=== PATIENT | male | born 1980 | race African-American/Black ===

== ENCOUNTER 2016-10-13 19:34 | Emergency (ER) | payer OTHER ==
[2016-10-13] MEDS ORDERED: SODIUM CHLORIDE 0.9% INJ ONE (22:41)
[2016-10-13] MEDS ORDERED: NS 1,000 ML IV ONE (22:41)
[2016-10-13] MEDS ORDERED: PROTONIX IV ONE (22:41)
[2016-10-13] MEDS ORDERED: ZOFRAN IV ONE (22:41)
[2016-10-13] MEDS ORDERED: MORPHINE IV ONE (22:41)
--- NOTE | 2016-10-13 22:46 | PROVIDER DOCUMENTATION ---
HPI-Abdominal Pain/GI Problem - General Chief Complaint: Abdominal Pain Stated Complaint: STOMACH/CHEST PAIN Time Seen by Provider: 10/13/16 22:17 Source: patient, family Allergies/Adverse Reactions: Patient Allergies Allergy/AdvReac Type Severity Reaction Status Date / Time orange flavor Allergy Severe SWELLING Verified 10/13/16 20:38 Sulfa (Sulfonamide Allergy Intermediate HIVES Verified 10/13/16 20:38 Antibiotics) [Sulfa(Sulfonamide Antibiotics)] orange juice [[place] Juice] AdvReac Severe SWELLING Verified 10/13/16 20:38 Home Medications: Home Medication List Medication Instructions Recorded Confirmed Last Taken Type Fluticasone 50 Mcg Nasal [place] 1 spray SHANT DAILY #0 bottle 09/27/14 10/13/16 22:00 Rx [Flonase] Gabapentin [Neurontin] 100 mg PO DAILY 01/20/16 10/13/16 06/10/16 22:00 History Metformin [Glucophage] 1,000 mg PO BID CC #60 tablet 05/23/16 10/13/16 06/10/16 08:00 Rx Insulin Glargine [Lantus] 50 unit SUBQ QPM 06/11/16 10/13/16 06/10/16 22:00 History Docusate Sodium [Dulcolax Stool 100 mg PO TID PRN PRN #10 capsule 10/14/16 Unknown Rx Softener] Simethicone Chew [Mylicon] 80 mg PO PRN PRN #10 tablet 10/14/16 Unknown Rx - History of Present Illness-ABD Nature of Presenting Problems: Patient is a 36yo AA male that presents with chest and abdominal pain x12hrs. Pain is lower mid chest and upper abdomen, 9.5/10, intermittent sharp, aching pain. Moving makes pain worse, and tried peptobismol and zofran at home, but to no relief. He ate chicken yesterday that he thought might have been more pink than he usually eats, but he ate it anyway. His also ate the chicken and felt "funny", but having symptoms to the extent of the patient. Patient reports nausea, diarrhea x4 today, dry mouth, and chronic cough. Abdominal Pain Onset Location: reports: generalized abdomen Quality of Pain: reports: aching, cramping Severity in ED: reports: moderate Onset/Duration: reports: this morning Timing: reports: still present Modifying Factors: improves with: palpation Last BM: this morning Dark Stools Present?: reports: none noticed Rectal Bleeding: reports: none Bruising or Bleeding Gums?: No Similar Symptoms Previously?: No Recently seen or treated by another doctor?: No Review of Systems - Adult - REVIEW OF SYSTEMS - ADULT Constitutional: reports: fatique. denies: chills, fever Eyes: reports: no symptoms reported. denies: discharge, dry eyes Ears, Nose, Mouth & Throat: reports: no symptoms reported. denies: ear discharge, ear pain Cardiovascular: reports: no symptoms reported. denies: chest pain, edema Respiratory: reports: chronic cough. denies: cough, dyspnea on exertion Gastrointestinal: reports: abdominal pain, nausea. denies: difficulty swallowing, frequent heartburn Genitourinary: reports: no symptoms reported. denies: dysuria, discharge Musculoskeletal: reports: no symptoms reported. denies: bone pain, back pain Integumentary: reports: no symptoms reported. denies: hives, hair loss Neurological: reports: no symptoms reported. denies: ataxia, dizziness/vertigo Psychiatric: reports: no symptoms reported. denies: anxiety, anti-depressant use Endocrine: reports: no symptoms reported Hematologic/Lymphatic: reports: no symptoms reported Allergic/Immunologic: reports: no symptoms reported All Other Systems: Reviewed and Negative Past History - Adult - PAST MEDICAL HISTORY-ADULT Review of Records: reports: Old Records Reviewed, Nursing Assessment Review, Medications Reviewed, Social history reviewed & non-contributory. Major Childhood Illnesses: reports: denies history Cardiovascular: reports: CHF Respiratory: reports: asthma, pneumonia Gastrointestinal: reports: denies history Obstetrical/Gynecological: reports: denies history Genitourinary: reports: denies history Musculoskeletal: reports: denies history Neurological: reports: denies history Endocrine/Immune: reports: Diabetes Other Conditions: reports: denies history - PRIOR SURGERIES/PROCEDURES Surgical/Procedure History: reports: other (sinus) - IMMUNIZATION STATUS Childhood Immunizations: See Nurse Assessment Flu Vaccine: See Nurse Assessment - FAMILY HISTORY Family History: reviewed, not pertinent Physical Exam-General - PHYSICAL EXAM-ADULT Initial Vital Signs Reviewed: Yes - CONSTITUTIONAL General Appearance: appears well, alert, no apparent distress - EYES Eyes: PERRL/EOMI, pink conjunctivae - HEAD, EARS, NOSE, MOUTH & THROAT HENMT: normocephalic/atraumatic, moist mucous membranes, normal ENT inspection - NECK Neck: non-tender, full range of motion, supple, normal inspection - RESPIRATORY Respiratory: chest non-tender, lungs clear, normal breath sounds, no pleuratic chest pain, no respiratory distress, no accessory muscle use - CARDIOVASCULAR Cardiovascular: normal peripheral pulses, regular rate, rhythm - GASTROINTESTINAL (ABDOMEN) Abdominal Exam: normal bowel sounds, soft, no organomegaly, no pulsatile mass, tenderness (generalized; out of proportion to exam). negative: abdominal bruit , abnormal bowel sounds, distended, guarding, rigid, rebound, McBurney's point tenderness, Mejía's sign - MUSCULOSKELETAL Back Exam: normal inspection Extremity: normal range of motion, non-tender, normal gait, normal inspection - SKIN Integumentary: normal color, normal turgor, warm/dry - NEUROLOGIC Neurologic: grossly normal, no motor/sensory deficits - PSYCHIATRIC Psych/Mental Status: normal mood/affect, normal thought content, normal thought process, oriented x 3 Progress - PLAN OF CARE/RESULTS Progress/Plan/Lab Results: Laboratory Tests 10/13/16 10/13/16 10/13/16 20:41 22:30 23:00 WBC 8.19 RBC 6.41 H Hgb 15.2 Hct 45.6 MCV 71.1 L MCH 23.7 L MCHC 33.3 RDW Std Deviation 14.3 Plt Count 193 MPV 11.0 H Immature Gran % (Auto) 0.1 Neut % (Auto) 84.3 H Lymph % (Auto) 8.5 L Leslie % (Auto) 6.6 Eos % (Auto) 0.4 Baso % (Auto) 0.1 Immature Gran # (Auto) 0.01 Neut # (Auto) 6.90 H Lymph # (Auto) 0.70 L Leslie # (Auto) 0.54 Eos # (Auto) 0.03 Baso # (Auto) 0.01 Sodium 134 L Potassium 4.1 Chloride 96 L Carbon Dioxide 22 L Anion Gap 16 BUN 19 Creatinine 1.0 Estimated GFR/1.73 m2 > 60 BUN/Creatinine Ratio 19 Glucose 271 H POC Glucose 237 H Calculated Osmolality 280 Calcium 9.4 Total Bilirubin 0.40 AST 18 ALT 24 Alkaline Phosphatase 87 Total Protein 7.5 Albumin 4.2 Globulin 3.0 Albumin/Globulin Ratio 1.0 Amylase 47 Lipase 18 Urine Source Urine Color Urine Clarity Urine pH Ur Specific [place] Urine Protein Urine Ketones Urine Blood Urine Nitrite Urine Bilirubin Urine Urobilinogen Urine Microscopic RBC Urine WBC Urine Microscopic WBC Ur Epithelial Cells Urine Bacteria Urine Glucose 10/13/16 23:35 WBC RBC Hgb Hct MCV MCH MCHC RDW Std Deviation Plt Count MPV Immature Gran % (Auto) Neut % (Auto) Lymph % (Auto) Leslie % (Auto) Eos % (Auto) Baso % (Auto) Immature Gran # (Auto) Neut # (Auto) Lymph # (Auto) Leslie # (Auto) Eos # (Auto) Baso # (Auto) Sodium Potassium Chloride Carbon Dioxide Anion Gap BUN Creatinine Estimated GFR/1.73 m2 BUN/Creatinine Ratio Glucose POC Glucose Calculated Osmolality Calcium Total Bilirubin AST ALT Alkaline Phosphatase Total Protein Albumin Globulin Albumin/Globulin Ratio Amylase Lipase Urine Source VOIDED Urine Color YELLOW Urine Clarity CLEAR Urine pH 5.0 Ur Specific [place] 1.015 Urine Protein NEGATIVE Urine Ketones 2+(Moderate) A Urine Blood NEGATIVE Urine Nitrite NEGATIVE Urine Bilirubin NEGATIVE Urine Urobilinogen NORMAL Urine Microscopic RBC <10 Urine WBC NEGATIVE Urine Microscopic WBC <10 Ur Epithelial Cells <10 Urine Bacteria 2+ Urine Glucose 3+(500 mg/dL) A Orders Category Date Time Status Saline Loc DIRECTED Care 10/13/16 22:00 Active NPO Diet 10/13/16 22:00 Active FLAT/UPRIGHT ABD/1 VIEW CHEST [RAD] Stat Exams 10/13/16 22:41 Taken AMYLASE [CHEM] Stat Lab 10/13/16 23:00 Completed CBC WITH ELECTRONIC DIFF [HEME] Stat Lab 10/13/16 22:30 Completed COMPREHENSIVE METABOLIC PANEL [CHEM] Stat Lab 10/13/16 23:00 Completed LIPASE [CHEM] Stat Lab 10/13/16 23:[address] W/POSS RFLX CULT [URINALYSIS] Stat Lab 10/13/16 23:35 Completed URINE CULTURE [RM] Routine Lab 10/14/16 00:06 Ordered 0.9% Sodium Chloride Inj [Ns] 1,000 ml Med 10/13/16 22:41 Discontinued IV 999 mls/hr Morphine Med 10/13/16 22:41 Discontinued 4 mg IV NOW ONE Ondansetron [Zofran] Med 10/13/16 22:41 Discontinued 4 mg IV NOW ONE Pantoprazole [Protonix] Med 10/13/16 22:41 Discontinued 40 mg IV NOW ONE Sodium Chloride 0.9% Med 10/13/16 22:41 Discontinued 10 ml INJ NOW ONE Vital Signs Temp Pulse Resp BP Pulse Ox 10/13/16 20:32 98.4 F 105 H 18 113/63 98 orange flavor Allergy (Severe, Verified 10/13/16 20:38) SWELLING Sulfa (Sulfonamide Antibiotics) [Sulfa(Sulfonamide Antibiotics)] Allergy ( Intermediate, Verified 10/13/16 20:38) HIVES orange juice [[place] Juice] Adverse Reaction (Severe, Verified 10/13/16 20:38) SWELLING Fluticasone 50 Mcg Nasal [place] [Flonase] 1 spray SHANT DAILY #0 bottle 09/27/14 Gabapentin [Neurontin] 100 mg PO DAILY 01/20/16 Metformin [Glucophage] 1,000 mg PO BID CC #60 tablet 05/23/16 Insulin Glargine [Lantus] 50 unit SUBQ QPM 06/11/16 Dietary Diet NPO Start ThuOct 13 2199 I&O 10/12/16 10/13/16 10/14/16 06:59 06:59 06:59 Output Total 50 Balance -50 Laboratory 10/13/16 10/13/16 10/13/16 23:35 23:00 22:30 WBC 8.19 RBC 6.41 H Hgb 15.2 Hct 45.6 MCV 71.1 L MCH 23.7 L MCHC 33.3 RDW Std Deviation 14.3 Plt Count 193 MPV 11.0 H Immature Gran % (Auto) 0.1 Neut % (Auto) 84.3 H Lymph % (Auto) 8.5 L Leslie % (Auto) 6.6 Eos % (Auto) 0.4 Baso % (Auto) 0.1 Immature Gran # (Auto) 0.01 Neut # (Auto) 6.90 H Lymph # (Auto) 0.70 L Leslie # (Auto) 0.54 Eos # (Auto) 0.03 Baso # (Auto) 0.01 Sodium 134 L Potassium 4.1 Chloride 96 L Carbon Dioxide 22 L Anion Gap 16 BUN 19 Creatinine 1.0 Estimated GFR/1.73 m2 > 60 BUN/Creatinine Ratio 19 Glucose 271 H POC Glucose Calculated Osmolality 280 Calcium 9.4 Total Bilirubin 0.40 AST 18 ALT 24 Alkaline Phosphatase 87 Total Protein 7.5 Albumin 4.2 Globulin 3.0 Albumin/Globulin Ratio 1.0 Amylase 47 Lipase 18 Urine Source VOIDED Urine Color YELLOW Urine Clarity CLEAR Urine pH 5.0 Ur Specific [place] 1.015 Urine Protein NEGATIVE Urine Ketones 2+(Moderate) A Urine Blood NEGATIVE Urine Nitrite NEGATIVE Urine Bilirubin NEGATIVE Urine Urobilinogen NORMAL Urine Microscopic RBC <10 Urine WBC NEGATIVE Urine Microscopic WBC <10 Ur Epithelial Cells <10 Urine Bacteria 2+ Urine Glucose 3+(500 mg/dL) A 10/13/16 20:41 WBC RBC Hgb Hct MCV MCH MCHC RDW Std Deviation Plt Count MPV Immature Gran % (Auto) Neut % (Auto) Lymph % (Auto) Leslie % (Auto) Eos % (Auto) Baso % (Auto) Immature Gran # (Auto) Neut # (Auto) Lymph # (Auto) Leslie # (Auto) Eos # (Auto) Baso # (Auto) Sodium Potassium Chloride Carbon Dioxide Anion Gap BUN Creatinine Estimated GFR/1.73 m2 BUN/Creatinine Ratio Glucose POC Glucose 237 H Calculated Osmolality Calcium Total Bilirubin AST ALT Alkaline Phosphatase Total Protein Albumin Globulin Albumin/Globulin Ratio Amylase Lipase Urine Source Urine Color Urine Clarity Urine pH Ur Specific [place] Urine Protein Urine Ketones Urine Blood Urine Nitrite Urine Bilirubin Urine Urobilinogen Urine Microscopic RBC Urine WBC Urine Microscopic WBC Ur Epithelial Cells Urine Bacteria Urine Glucose Will d/c home. Pt in agreement. - XRAY 1 XRAY Study: Abdomen XRAY Interpretation: constipation; gas distention (myself and Dr. wood) Departure - Departure Time of Disposition Order: 00:34 DIAGNOSIS: Gas pain Constipated Qualifiers: Constipation type: unspecified constipation type Qualified Code(s): K59.00 - Constipation, unspecified Disposition: HOME 01 Certified Medical Emergency: Emergent Condition: Good Additional Instructions: Take medication as prescribed. Eat a bland diet and drink plenty of fluid. Follow up with your primary care provider or [facility]. ED Follow Up Instructions: You have been treated by a care provider in the Emergency Department. These instructions are being provided to you so you can have an understanding of how to care for yourself upon discharge. Upon discharge from the Emergency Department, you are responsible for making arrangements for follow-up care by a physician of your choice. Take all prescribed medications as directed. Return to the Emergency Department immediately for any new or worsening symptoms. You may call the Physician Referral phone number at [phone] to obtain a list of Physicians who are taking new patients. Prescriptions: Docusate Sodium [Dulcolax Stool Softener] 100 mg PO TID PRN PRN #10 capsule PRN Reason: Constipation Simethicone Chew [Mylicon] 80 mg PO PRN PRN #10 tablet PRN Reason: gas pain Referrals: Deana Dunn CRNP [Primary Care Provider] - Narendra Elkins MD [STAFF PHYSICIAN] - Attestation - Physician/ KRISTINA Attestation Patient care was provided by Advanced Practice Provider:: Yes Advanced Practice Provider:: Keven Gomez Advanced Practice Provider documentation review:: The Mid-level provider documentation, treatment plan and medical decision making was reviewed by the physician who agrees with all treatment and medical decision making by the MLP.
[2016-10-13 22:49] LABS: BASO% 0.1 % (0.0-0.8); EOS# 0.03 X1000 (0.0-0.7); EOS% 0.4 % (0.0-10.0); HEMATOCRIT 45.6 % (42.0-52.0); HEMOGLOBIN 15.2 g/dL (14.0-18.0); IMM GRAN# 0.01 X1000 (0.0-0.04); IMM GRAN% 0.1 % (0.0-0.5); LYMPH% 8.5 % (20.5-51.1); MANUAL DIFF NEEDED? NO; MCH 23.7 PG (27-31); MCHC 33.3 g/dL (33-37); MCV 71.1 FL (81-99); MONO# 0.54 X1000 (0.11-0.59); MONO% 6.6 % (1.7-9.3); NEUT% 84.3 % (42.2-75.2); PLT 193 X1000 (130-400); RBC 6.41 XMIL (4.7-6.1)
[2016-10-13 23:25] LABS: AGAP 16; ALBUMIN 4.2 g/dL (3.5-5.0); ALKALINE PHOSPHATASE 87 U/L (32-122); AMYLASE 47 U/L (20-200); BUN 19 mg/dL (8-22); CALCIUM 9.4 mg/dL (8.8-10.2); CHLORIDE 96 mmol/L (98-107); COSMO 280; GOT 18 U/L (10-34); GPT 24 U/L (10-44); LIPASE 18 U/L (13-60); POTASSIUM 4.1 mmol/L (3.5-5.1); SODIUM 134 mmol/L (136-145); TCO2 22 mmol/L (25-35); TOTAL PROTEIN 7.5 g/dL (6.3-8.3)
[2016-10-13 23:51] LABS: URINE SOURCE VOIDED
[2016-10-13 23:59] LABS: BILIRUBIN URINE NEGATIVE (NEGATIVE); BLOOD URINE NEGATIVE (NEGATIVE); CLARITY CLEAR (CLEAR); COLOR YELLOW; LEUKOCYTES URINE NEGATIVE (NEGATIVE); NITRITE URINE NEGATIVE (NEGATIVE); PROTEIN URINE NEGATIVE (NEGATIVE); SP GRAVITY URINE 1.015; UROBILINOGEN URINE NORMAL
[2016-10-14 00:06] LABS: URINE CULTURE PL NEEDED? YES; URINE EPITHELIAL CELLS <10 /HPF (<10); URINE RBC <10 /HPF (<10); URINE WBC <10 /HPF (<10)
[2016-10-14 01:36] VITALS: BP 126/75
--- NOTE | 2016-10-14 06:13 | Diag Imaging Result Document ---
PROCEDURE NAME: FLAT/UPRIGHT ABD/1 VIEW CHEST - 10/13/2016 FLAT AND UPRIGHT WITH CHEST, THREE VIEWS: COMPARISON: The chest is compared to 06/11/2016. FINDINGS: The lungs are well expanded. The heart is not enlarged. Tiny infiltrate in the left base behind the heart. No free air beneath the diaphragm. No bowel obstruction although there is stool throughout the colon. No organomegaly. No abnormal abdominal calcifications. No foreign body. IMPRESSION: 1. Small infiltrate in the left lung base. 2. Mild constipation.
== END 2016-10-14 01:36 | disposition home or self-care (01) ==
LOC: P.ED 19:34
DX: K59.00 Constipation, unspecified (principal); R14.1 Gas pain; R07.89 Other chest pain; R10.30 Lower abdominal pain, unspecified; R10.84 Generalized abdominal pain; R11.0 Nausea; R19.7 Diarrhea, unspecified; R05 Cough; R68.2 Dry mouth, unspecified; R53.83 Other fatigue; R10.817 Generalized abdominal tenderness; E11.9 Type 2 diabetes mellitus without complications; Z79.4 Long term (current) use of insulin; Z79.899 Other long term (current) drug therapy
CPT/HCPCS: 74022; 80053; 81001; 82150; 82948; 83690; 85025; 87088; 96361; 96374; 96375; C9113; J2270; J2405; J7030; S0164

== ENCOUNTER 2016-11-25 17:48 | Inpatient (IN) ==
--- NOTE | 2016-11-25 20:14 | PROVIDER DOCUMENTATION ---
HPI-Respiratory General - General Chief Complaint: Cough Stated Complaint: COUGH/CHEST JUDY Time Seen by Provider: 11/25/16 19:42 Source: patient, family Allergies/Adverse Reactions: Patient Allergies Allergy/AdvReac Type Severity Reaction Status Date / Time orange flavor Allergy Severe SWELLING Verified 10/13/16 20:38 Sulfa (Sulfonamide Allergy Intermediate HIVES Verified 10/13/16 20:38 Antibiotics) [Sulfa(Sulfonamide Antibiotics)] orange juice [Anna Juice] AdvReac Severe SWELLING Verified 10/13/16 20:38 Home Medications: Home Medication List Medication Instructions Recorded Confirmed Last Taken Type Fluticasone 50 Mcg Nasal [place] 1 spray SHANT DAILY #0 bottle 09/27/14 10/13/16 22:00 Rx [Flonase] Gabapentin [Neurontin] 100 mg PO DAILY 01/20/16 10/13/16 06/10/16 22:00 History Metformin [Glucophage] 1,000 mg PO BID CC #60 tablet 05/23/16 10/13/16 06/10/16 08:00 Rx Insulin Glargine [Lantus] 50 unit SUBQ QPM 06/11/16 10/13/16 06/10/16 22:00 History Docusate Sodium [Dulcolax Stool 100 mg PO TID PRN PRN #10 capsule 10/14/16 Unknown Rx Softener] Simethicone Chew [Mylicon] 80 mg PO PRN PRN #10 tablet 10/14/16 Unknown Rx - History of Present Illness-Resp Nature of Presenting Problem: 36 yo diabetic male with significant hx of pneumonia and hospitalization in the past presents with 7 days of cough, congestion and body aches. States feels like when he has had pneumonia in the past. Has slight hemoptysis last two days , otherwise thick mucus. Also has nasal congestion, sore throat, and body aches and chills. Has only taken his daily medication and Mucinex for treatment. Is to have nasal polyp surgery but waiting for clearance due to lung issues. Last hospitalization for PNA was May 16 2016 x 6 days. Quality of Pain: reports: aching Severity in ED: reports: moderate Onset/Duration: reports: 1 week ago Timing: reports: still present, getting worse Exposure: reports: unknown cause Cough Quality/Degree: reports: moderate, productive cough, sputum, blood streaked sputum Episode Frequency: frequent episodes Modifying Factors: improves with: coughing, rest Associated Symptoms: reports: chest pain/soreness, cough, dizziness, facial pain , fever/chills, hurts to breathe, muscle/bodyaches, nasal congestion, nasal drainage, shortness of breath, sinus pain Similar Symptoms Previously?: Yes (hx of pneumonia, was hospitalized in May) Recently seen or treated by another doctor?: No Review of Systems - Adult - REVIEW OF SYSTEMS - ADULT Constitutional: reports: chills, fatique Eyes: reports: no symptoms reported Ears, Nose, Mouth & Throat: reports: sinus problem, hoarseness. denies: ear pain, epistaxis Cardiovascular: reports: chest pain. denies: palpitations, syncope Respiratory: reports: cough, dyspnea on exertion, excessive sputum production, hemoptysis, shortness of breath Gastrointestinal: denies: abdominal pain Musculoskeletal: reports: joint pain, muscle aches Integumentary: reports: other (pain to touch) Neurological: reports: dizziness/vertigo, headache/migraines, paresthesia (hx of peripheral neuropathy) Past History - Adult - PAST MEDICAL HISTORY-ADULT Review of Records: reports: Old Records Reviewed, Nursing Assessment Review, Medications Reviewed, Social history reviewed & non-contributory. Major Childhood Illnesses: reports: denies history Cardiovascular: reports: CHF Respiratory: reports: asthma, pneumonia Gastrointestinal: reports: denies history Obstetrical/Gynecological: reports: denies history Genitourinary: reports: denies history Musculoskeletal: reports: denies history Neurological: reports: denies history Endocrine/Immune: reports: Diabetes Other Conditions: reports: denies history - PRIOR SURGERIES/PROCEDURES Surgical/Procedure History: reports: other (sinus) - IMMUNIZATION STATUS Childhood Immunizations: See Nurse Assessment Flu Vaccine: See Nurse Assessment - FAMILY HISTORY Family History: reviewed, not pertinent Physical Exam-General - PHYSICAL EXAM-ADULT Initial Vital Signs Reviewed: Yes - CONSTITUTIONAL General Appearance: moderate distress, lethargic, slow to respond - HEAD, EARS, NOSE, MOUTH & THROAT HENMT: normocephalic/atraumatic. negative: moist mucous membranes (Dry caked tongue), angioedema, pharyngeal erythema, tonsillar exudate - NECK Neck: supple. negative: non-tender, trachial deviation - RESPIRATORY Respiratory: no accessory muscle use, crackles. negative: lungs clear, no pleuratic chest pain, wheezing - CARDIOVASCULAR Cardiovascular: regular rate, rhythm, no gallop, no JVD, no murmur, tachycardia . negative: friction rub - MUSCULOSKELETAL Extremity: tenderness (To all extremities with light palpation). negative: erythema, pedal edema, swelling - SKIN Integumentary: warm/dry, tenderness - NEUROLOGIC Neurologic: negative: motor weakness - PSYCHIATRIC Psych/Mental Status: oriented x 3, depressed affect Progress - PLAN OF CARE/RESULTS Progress/Plan/Lab Results: Vital Signs - 8 hr 11/25/16 17:57 11/25/16 21:11 11/25/16 22:12 Temperature 99.8 F H 100.3 F H 99.2 F Pulse Rate 110 H 105 H 99 H Respiratory Rate 19 13 Blood Pressure 133/93 148/92 O2 Sat by Pulse Oximetry 98 96 99 11/26/16 00:38 Temperature 98.2 F Pulse Rate 90 Respiratory Rate 18 Blood Pressure 121/79 O2 Sat by Pulse Oximetry 100 Laboratory Results - last 24 hr 11/25/16 11/25/16 11/25/16 19:50 21:00 21:00 WBC 7.90 RBC 5.58 Hgb 13.4 L Hct 40.7 L MCV 72.9 L MCH 24.0 L MCHC 32.9 L RDW Std Deviation 14.4 Plt Count 199 MPV 10.3 Immature Gran % (Auto) 0.1 Neut % (Auto) 68.2 Lymph % (Auto) 21.4 [place] % (Auto) 9.5 H Eos % (Auto) 0.5 Baso % (Auto) 0.3 Immature Gran # (Auto) 0.01 Neut # (Auto) 5.39 Lymph # (Auto) 1.69 [place] # (Auto) 0.75 H Eos # (Auto) 0.04 Baso # (Auto) 0.02 Segmented Neutrophils 67 Band Neutrophils 2 H Lymphocytes 20 L Monocytes 11 H Hypochromia 1+ Microcytosis 3+ PT INR APTT (Factor Assay) Specimen Type Sample Site pH pCO2 pO2 HCO3 Base Excess Oxyhemoglobin ABG O2 Sat (Calculated) ABG O2 Saturation ABG Carboxyhemoglobin ABG Methemoglobin Jaime Test A-a O2 Difference Total Hemoglobin Lactate Blood Gas Modality FiO2 % Sodium 137 Potassium 3.5 Chloride 98 Carbon Dioxide 21 L Anion Gap 18 BUN 9 Creatinine 0.8 Estimated GFR/1.73 m2 > 60 BUN/Creatinine Ratio 11 Glucose 149 H Calculated Osmolality 275 Calcium 8.8 Total Bilirubin 0.40 AST 16 ALT 13 Alkaline Phosphatase 79 Creatine Kinase Troponin T Total Protein 7.2 Albumin 3.8 Globulin 3.0 Albumin/Globulin Ratio 1.0 Plasma Lactate Influenza A (Rapid) NEGATIVE Influenza B (Rapid) NEGATIVE 11/25/16 11/25/16 11/25/16 21:00 21:00 21:00 WBC RBC Hgb Hct MCV MCH MCHC RDW Std Deviation Plt Count MPV Immature Gran % (Auto) Neut % (Auto) Lymph % (Auto) [place] % (Auto) Eos % (Auto) Baso % (Auto) Immature Gran # (Auto) Neut # (Auto) Lymph # (Auto) [place] # (Auto) Eos # (Auto) Baso # (Auto) Segmented Neutrophils Band Neutrophils Lymphocytes Monocytes Hypochromia Microcytosis PT 13.6 INR 1.01 APTT (Factor Assay) 29.0 Specimen Type Sample Site pH pCO2 pO2 HCO3 Base Excess Oxyhemoglobin ABG O2 Sat (Calculated) ABG O2 Saturation ABG Carboxyhemoglobin ABG Methemoglobin Jaime Test A-a O2 Difference Total Hemoglobin Lactate Blood Gas Modality FiO2 % Sodium Potassium Chloride Carbon Dioxide Anion Gap BUN Creatinine Estimated GFR/1.73 m2 BUN/Creatinine Ratio Glucose Calculated Osmolality Calcium Total Bilirubin AST ALT Alkaline Phosphatase Creatine Kinase 61 Troponin T < 0.010 Total Protein Albumin Globulin Albumin/Globulin Ratio Plasma Lactate Influenza A (Rapid) Influenza B (Rapid) 11/25/16 11/25/16 21:28 21:40 WBC RBC Hgb Hct MCV MCH MCHC RDW Std Deviation Plt Count MPV Immature Gran % (Auto) Neut % (Auto) Lymph % (Auto) [place] % (Auto) Eos % (Auto) Baso % (Auto) Immature Gran # (Auto) Neut # (Auto) Lymph # (Auto) [place] # (Auto) Eos # (Auto) Baso # (Auto) Segmented Neutrophils Band Neutrophils Lymphocytes Monocytes Hypochromia Microcytosis PT INR APTT (Factor Assay) Specimen Type ARTERIAL Sample Site R RADIAL pH 7.42 pCO2 36 pO2 70 HCO3 24.3 Base Excess -0.7 Oxyhemoglobin 93.3 L ABG O2 Sat (Calculated) 18.9 ABG O2 Saturation 97.1 ABG Carboxyhemoglobin 2.30 ABG Methemoglobin 1.6 H Jaime Test YES A-a O2 Difference 35.0 Total Hemoglobin 14.4 Lactate 0.80 Blood Gas Modality ROOM AIR FiO2 % 21.0 Sodium Potassium Chloride Carbon Dioxide Anion Gap BUN Creatinine Estimated GFR/1.73 m2 BUN/Creatinine Ratio Glucose Calculated Osmolality Calcium Total Bilirubin AST ALT Alkaline Phosphatase Creatine Kinase Troponin T Total Protein Albumin Globulin Albumin/Globulin Ratio Plasma Lactate 1.5 Influenza A (Rapid) Influenza B (Rapid) Orders Category Date Time Status Admit - [facility] Routine AdmDCTranf 11/26/16 00:54 Ordered Activity - Up Ad Kat ORDERED Care 11/26/16 00:54 Active Call Admitting on Arrival AT ADMISSION Care 11/26/16 00:54 Active Cardiac Monitoring DIRECTED Care 11/25/16 21:21 Active IV Insertion ORDERED Care 11/25/16 21:21 Completed Notify MD of + Sepsis Screen NOW Care 11/25/16 21:21 Active Resuscitation Status Routine Care 11/26/16 00:54 Ordered Saline Loc NOW Care 11/25/16 20:53 Inactive Saline Loc NOW Care 11/25/16 20:57 Active Vital Signs Order ROUTINE Care 11/26/16 00:54 Active Heart Healthy Diet Diet 11/26/16 00:55 Active CHEST-2 VIEWS [RAD] Stat Exams 11/25/16 18:03 Taken Chest [CT THORAX W/CONTRAST] [CT] Stat Exams 11/25/16 21:50 Taken ABG [RESP] Routine Lab 11/25/16 21:28 Completed BLOOD CULTURE [BLDCUL] Stat Lab 11/25/16 20:57 Ordered CBC WITH DIFF [HEME] Stat Lab 11/25/16 21:00 Completed CK PROFILE [SP CHEM] Stat Lab 11/25/16 21:00 Completed CMP [COMPREHENSIVE METABOLIC PANEL] [CHEM] Stat Lab 11/25/16 21:00 Completed Flu [INFLUENZA SCREEN PL] Stat Lab 11/25/16 19:50 Completed LACTATE, PLASMA [CHEM] Stat Lab 11/25/16 21:40 Completed [address]IME WITH INR PL [COAG] Stat Lab 11/25/16 21:[address] [COAG] Stat Lab 11/25/16 21:00 Completed TROPONIN T Stat Lab 11/25/16 21:00 Completed 0.9% Sodium Chloride Inj [Ns] 1,000 ml Med 11/26/16 00:54 Active IV 90 mls/hr 0.9% Sodium Chloride Inj [Ns] 1,000 ml Med 11/25/16 21:46 Discontinued IV 999 mls/hr Acetaminophen [Tylenol] Med 11/25/16 21:17 Discontinued 650 mg .ROUTE .STK-MED ONE Acetaminophen [Tylenol] Med 11/25/16 21:16 Discontinued 650 mg PO NOW ONE CefTRIAXONE 1 GM/NS [Rocephin 1 gm/Ns] Med 11/25/16 21:24 Discontinued 1 gm in 50 ml IV NOW Ketorolac [Toradol] Med 11/25/16 21:47 Discontinued 30 mg IV NOW ONE Vancomycin 1 gm/Ns Med 11/25/16 21:24 Discontinued 1 gm in 250 ml IV NOW Oxygen Device Stat Oth 11/25/16 21:21 Active Pulse Oximetry Stat Oth 11/25/16 20:57 Active Telemetry [OM.EQ] Routine Oth 11/26/16 00:54 Active Transfer/Admit Order [TRANSFER] Routine Transfer 11/26/16 00:55 Ordered Discussed CXR findings with Dr. Olivares, noted changes from previous CXR of consolidation in LLL. Upon recheck of pt temp, has fever 100.3, with elevated HR. Meets SIRS criteria , probable source from lungs as consolidation seen in LLL, changed from previous CXR six months prior. Discussed with midlevel on shift tonight regarding case. Given Tylenol, start on antibiotics IV. Result Diagrams: 11/25/16 21:00 11/25/16 21:00 - REASSESSMENT Reassessment #1 Time Reassessed: 21:17 Status: worsening (Temperature increased to 100.3. O2 sat 96% noted.) Reassessment #2 Time Reassessed: 21:52 Status: unchanged (Start IV fluids and IV abx and Toradol for his pain. COncern for recurrent pneumonia, possible atypical pneumonia. Order CT Chest. Pt c/o continued pain after Tylenol.) Reassessment #3 Time Reassessed: 22:10 (Took over pt from Sebastian FROST due to the end of her shift. Pt is stable however has SIRS criteria vital signs and worsening chest x- ray. We are working him up for sepsis. Pending labs and ct scan of chest. Pt states he has had pna x 2 years. ) Reassessment #4 Time Reassessed: 00:02 (Discussed imaging studies and labs c pt and family at bedside. Pt states he has had similar episodes in the past and has ultimately always failed out-pt tx. He is managed by Dr. Boyer and Dr. Light. Discussed c Dr. Olivares who agreed c admission. ) - XRAY 1 XRAY Study: Chest Impression: Abnormal (LLL consolidation (ED read)) XRAY Interpretation: Consolidation in LLL. Is new finding compared to CXR in May 2016. - CT/MRI 1 CT Study: Thorax Impression: Abnormal (Abnormal diffuse nodularity with confluent consolidation in both lungs. The pattern is similar to the prior study. The upper and midlung nodularity has decreased. Lower lung consolidation has slightly increased. This may be a chronic or recurrent pneumonia. Atypical organism is possible and not excluded. Unchanged mediastinal lymphadenopathy. - radiology) - CONSULTS/PCP/HOSPITALIST Notification #1 *Consult/PCP/Hospitalist*: Dr. Crabtree (Hospitalist) Time Discussed: 00:57 Reason/Comments: Please write basic admission orders. - CHANGE OF SHIFT REPORT (ED Provider) Report Given and Care Transferred to:: Jerad Goins PA-C Time of Transfer: 22:32 Items Pending: CT/MRI Results, Other (Admission for sepsis) Departure - Departure Time of Disposition Decision: 00:04 DIAGNOSIS: Pneumonia Qualifiers: Pneumonia type: due to unspecified organism Laterality: bilateral Lung location : lower lobe of lung Qualified Code(s): J18.9 - Pneumonia, unspecified organism Disposition: HOME 01 Certified Medical Emergency: Emergent Condition: Stable Referrals and Follow-Ups: Deana Dunn CRNP [Primary Care Provider] - Attestation - Physician/ KRISTINA Attestation Patient care was provided by Advanced Practice Provider:: Yes Advanced Practice Provider:: Jerad Goins Advanced Practice Provider documentation review:: The Mid-level provider documentation, treatment plan and medical decision making was reviewed by the physician who agrees with all treatment and medical decision making by the MLP.
[2016-11-25] MEDS ORDERED: TYLENOL PO ONE (21:16)
[2016-11-25] MEDS ORDERED: TYLENOL ONE (21:17)
[2016-11-25] MEDS ORDERED: VANCOMYCIN 1 GM/NS 1 GM/250 ML IVPB IV ONE (21:24)
[2016-11-25] MEDS ORDERED: ROCEPHIN 1 GM/NS 1 GM/50 ML IVPB IV ONE (21:24)
[2016-11-25 21:42] LABS: INR 1.01 (0.86-1.15); PROTIME 13.6 Seconds (12.1-15.5)
[2016-11-25 21:46] LABS: BE -0.7 mmoll (-3.0-3.0); BLOOD TYPE ARTERIAL; DRAW SITE R RADIAL; METHB 1.6 % (0.0-1.5); O2(CT) 18.9 mL/dL (15.0-23.0); PCO2(98.6) 36 mmHg (35-45); PO2(98.6) 70 mmHg (60-100); SAMPLE BLOOD; SAO2 97.1 % (95.0-100.0); THB 14.4 g/dL (11.5-17.4); pH(98.6) 7.42 (7.35-7.45)
[2016-11-25] MEDS ORDERED: NS 1,000 ML IV ONE (21:46)
[2016-11-25] MEDS ORDERED: TORADOL IV ONE (21:47)
[2016-11-25 21:48] LABS: AGAP 18; ALBUMIN 3.8 g/dL (3.5-5.0); ALKALINE PHOSPHATASE 79 U/L (32-122); BUN 9 mg/dL (8-22); CALCIUM 8.8 mg/dL (8.8-10.2); CHLORIDE 98 mmol/L (98-107); COSMO 275; GOT 16 U/L (10-34); GPT 13 U/L (10-44); POTASSIUM 3.5 mmol/L (3.5-5.1); SODIUM 137 mmol/L (136-145); TCO2 21 mmol/L (25-35); TOTAL PROTEIN 7.2 g/dL (6.3-8.3)
[2016-11-25 21:54] LABS: ALLEN TEST YES; MODALITY ROOM AIR
[2016-11-25 22:15] LABS: BASO% 0.3 % (0.0-0.8); EOS# 0.04 X1000 (0.0-0.7); EOS% 0.5 % (0.0-10.0); HEMATOCRIT 40.7 % (42.0-52.0); HEMOGLOBIN 13.4 g/dL (14.0-18.0); IMM GRAN# 0.01 X1000 (0.0-0.04); IMM GRAN% 0.1 % (0.0-0.5); LYMPH# 1.69 X1000 (1.2-3.4); LYMPH% 21.4 % (20.5-51.1); MANUAL DIFF NEEDED? YES; MCHC 32.9 g/dL (33-37); MCV 72.9 FL (81-99); MONO# 0.75 X1000 (0.11-0.59); MONO% 9.5 % (1.7-9.3); MPV 10.3 FL (7.4-10.4); NEUT% 68.2 % (42.2-75.2); PLT 199 X1000 (130-400); RBC 5.58 XMIL (4.7-6.1)
[2016-11-25 22:29] LABS: BANDS 2 % (0-1); HYPOCHROM 1+; LYMPHS 20 % (21-51); MONO 11 % (1-9)
[2016-11-26] MEDS ORDERED: NS 1,000 ML IV ONE (00:54)
[2016-11-26] MEDS ORDERED: TYLENOL PO PRN (06:13)
--- NOTE | 2016-11-26 07:55 | Diag Imaging Result Document ---
PROCEDURE NAME: CHEST-2 VIEWS - 11/25/2016 FRONTAL AND LATERAL CHEST, TWO VIEWS: COMPARISON: Compared to 10/13/2016. FINDINGS: There are infiltrates in the left base. These are more pronounced. Questionable tiny infiltrate in the right base. The heart is not enlarged. The vessels are not distended. No pleural effusions. IMPRESSION: Left basilar pneumonia.
--- NOTE | 2016-11-26 09:05 | Diag Imaging Result Document ---
PROCEDURE NAME: CT THORAX W/CONTRAST - 11/25/2016 CT SCAN OF THORAX WITH IV CONTRAST: INDICATION: Sepsis or chronic pneumonia. COMPARISON: 05/16/2016. FINDINGS: Preliminary interpretation was given by the corporate vp advertising & online radiologist. There is mediastinal lymphadenopathy. Aortopulmonary window lymph node measures 2.7 x 15 mm. There is subcarinal lymphadenopathy. There are nodular infiltrates involving the right middle lobe and lingula, as well as left lower lobe with more dense consolidation with air bronchograms, particularly noted within the left lower lobe. There are no pleural effusions. No abscess. No evidence for aortic aneurysm or dissection. The large confluent nodules noted on the previous study within the upper lobes are no longer apparent. Overall nodularity within the upper lobes has decreased. There is no evidence for aortic aneurysm or dissection. IMPRESSION: Bilateral nodular infiltrates are less pronounced than the prior study, though the pattern is similar with more confluent consolidation left lower lobe. Findings are consistent with persistent or recurrent pneumonia or inflammatory process. Atypical microorganisms should be considered. Bronchoscopy may be beneficial.
[2016-11-26] MEDS ORDERED: MYLICON PO PRN (09:24)
[2016-11-26] MEDS ORDERED: COLACE PO PRN (09:24)
[2016-11-26] MEDS ORDERED: GLUCOPHAGE PO SCH (09:30)
[2016-11-26] MEDS: FLONASE NAS SCH (10:00)
[2016-11-26] MEDS: NEURONTIN PO SCH (10:00)
[2016-11-26] MEDS: ZITHROMAX 500 MG/NS 500 MG/250 ML IVPB IV SCH (10:01)
--- NOTE | 2016-11-26 10:07 | HISTORY AND PHYSICAL ---
PRIMARY CARE PHYSICIAN: MORENITA Cody at [facility]. CHIEF COMPLAINT: Cough, congestion, body aches, sore throat, chills for the past several days that have progressively worsened. HISTORY OF PRESENTING ILLNESS: This is a 36-year-old, male, who presents to [facility] with complaints of cough that is productive, congestion, body aches, sore throat, chills. Workup in the ER showed on arrival he had a temperature of 99.8. Laboratory data was fairly unremarkable. Chest x-ray showed a left basilar pneumonia. A chest CT was obtained that showed bilateral nodular infiltrates. The pattern is similar with more confluent consolidation of the left lower lobe, consistent with persistent or recurrent pneumonia or inflammatory process. An atypical microorganism should be considered. So, he was admitted for further evaluation and treatment. PAST MEDICAL HISTORY: Asthma, diabetes type 2. CHF and pneumonia. PAST SURGICAL HISTORY: Spinal surgery as a child. FAMILY HISTORY: Hypertension, diabetes, coronary artery disease, hyperlipidemia, and CHF. SOCIAL HISTORY: Currently lives with his . Denied any tobacco, alcohol, or illicit drug use. ALLERGIES: [place] flavor, sulfa and orange juice. HOME MEDICATIONS: He takes docusate sodium 100 mg p.o. t.i.d. p.r.n. Flonase nasal spray daily, Neurontin 100 mg p.o. daily. Lantus 50 units subcu q.p.m., Glucophage 1000 mg p.o. b.i.d., Mylicon 80 mg p.o. p.r.n. LABORATORY DATA: Showed a white blood cell count of 7.90, hemoglobin of 13.4, hematocrit 40.7, platelets 199. PT and INR of 13.6 and 1.01. ABG with a pH of 7.42, pCO2 of 36, pO2 of 70, bicarb 24.3. Sodium of 137, potassium 3.5, chloride 98, CO2 of 21, BUN of 9 with a creatinine of 0.8, glucose of 149. AST of 16, ALT 13. Creatinine kinase of 61 with a troponin of less than 0.010. Plasma lactate was 1.5. Influenza A and B were both negative. Chest x-ray showed a left basilar pneumonia. Chest CT with contrast showed bilateral nodular infiltrates are less pronounced than the prior study, though the pattern is similar with more confluent consolidations in the left lower lobe. Findings are consistent with persistent or recurrent pneumonia or inflammatory process. Atypical microorganism should be considered and a bronchoscopy may be beneficial. REVIEW OF SYSTEMS: He was positive for body aches, chills, sore throat, nasal congestion, productive cough. Denied any shortness of breath, chest pain, abdominal pain, nausea, vomiting, diarrhea, or burning or hurting with urination. PHYSICAL EXAMINATION: VITAL SIGNS: On arrival, he had a temperature of 99.8, with a pulse of 110, respirations 19, blood pressure 133/93, saturating 98% on room air. This a.m., his temperature is down to 98 with a pulse of 79, respirations 18, blood pressure 126/80, saturating 98% on room air. GENERAL: This is a 36-year-old, male, who is lying in the bed, and answers questions appropriately. HEENT: Normocephalic and atraumatic. Pupils are equal, round, and reactive to light. Extraocular movements are intact. Oropharynx and nares are clear. NECK: Supple. LUNGS: Were clear to auscultation bilaterally. Equal lung expansion and chest wall movement. HEART: With regular rate and rhythm. No murmurs, rubs, or gallops. ABDOMEN: Soft, nontender, nondistended. Bowel sounds are present x4 quadrants. EXTREMITIES: No clubbing, cyanosis, or edema. NEUROLOGICAL: The cranial nerves 2-12 are grossly intact. ASSESSMENT: 1. Left basilar pneumonia. 2. Asthma, history of. 3. Diabetes type 2. PLAN: He was admitted to the medical unit at [facility]. Placed on telemetry. Diabetic diet. He is on normal saline at 90 mL an hour. Will continue him on Rocephin 1 gram IV q.24, Zithromax 500 mg IV q.24. Continue his home medications as previously identified. Recheck a CBC and BMP in the a.m. We will, at discharge, set him up for an outpatient bronchoscopy if his symptoms do not improve, we will do a repeat chest x-ray in the a.m. also. Dictated by MORENITA Fu for Gui Crabtree MD cc: MORENITA Fu MD Anna M. Dumas, CRNP
[2016-11-26] MEDS: NORCO-7.5 PO PRN (17:01)
[2016-11-26] MEDS: ROCEPHIN 1 GM/NS 1 GM/50 ML IVPB IV SCH (20:49)
[2016-11-26] MEDS: LANTUS INSULIN (PARKWAY) SUBQ SCH (20:52)
[2016-11-26] MEDS: HUMULIN R (PARKWAY) SUBQ SCH (20:52)
[2016-11-27] MEDS: NORCO-7.5 PO PRN (04:54)
[2016-11-27] MEDS: HUMULIN R (PARKWAY) SUBQ SCH ×4 (07:01→20:54)
--- NOTE | 2016-11-27 07:17 | Diag Imaging Result Document ---
PROCEDURE NAME: CHEST-2 VIEWS - 11/27/2016 CHEST X-RAY, 2 VIEWS: COMPARISON: 11/25/2016. FINDINGS: There is improvement in the bibasilar infiltrates, left greater than right. No new infiltrates. No pneumothorax or significant effusion. Heart size remains normal. IMPRESSION: Improvement from prior.
[2016-11-27 07:25] LABS: BASO% 0.3 % (0.0-0.8); EOS# 0.03 X1000 (0.0-0.7); EOS% 0.4 % (0.0-10.0); HEMOGLOBIN 12.3 g/dL (14.0-18.0); IMM GRAN# 0.02 X1000 (0.0-0.04); IMM GRAN% 0.3 % (0.0-0.5); LYMPH# 1.89 X1000 (1.2-3.4); LYMPH% 27.2 % (20.5-51.1); MANUAL DIFF NEEDED? NO; MCH 23.8 PG (27-31); MCHC 32.4 g/dL (33-37); MCV 73.5 FL (81-99); MONO# 0.64 X1000 (0.11-0.59); MONO% 9.2 % (1.7-9.3); MPV 10.1 FL (7.4-10.4); NEUT% 62.6 % (42.2-75.2); PLT 217 X1000 (130-400); RBC 5.17 XMIL (4.7-6.1)
[2016-11-27 07:27] LABS: HEMOGLOBIN A1C 10.1 % (4.8-6.0)
[2016-11-27 07:29] LABS: AGAP 13; BUN 10 mg/dL (8-22); CALCIUM 8.6 mg/dL (8.8-10.2); CHLORIDE 99 mmol/L (98-107); COSMO 274; POTASSIUM 3.2 mmol/L (3.5-5.1); SODIUM 137 mmol/L (136-145); TCO2 25 mmol/L (25-35)
[2016-11-27] MEDS ORDERED: KLOR-CON PO ONE (08:51)
[2016-11-27] MEDS: NS 1,000 ML IV SCH ×2 (09:53→20:58)
[2016-11-27] MEDS: NEURONTIN PO SCH (09:55)
[2016-11-27] MEDS: ZYRTEC PO SCH (09:55)
[2016-11-27] MEDS: FLONASE NAS SCH (09:55)
[2016-11-27] MEDS: VITAMIN D PO SCH (09:55)
[2016-11-27] MEDS: ZITHROMAX 500 MG/NS 500 MG/250 ML IVPB IV SCH (09:56)
--- NOTE | 2016-11-27 15:37 | PROGRESS NOTE ---
DATE: 11/27/2016 SUBJECTIVE: Today Mr. Elizabeth refers to be doing a little better. Still coughing up some greenish- yellow stuff. Did not have any fever. OBJECTIVE: Vitals stable: Vitals are stable. Blood pressure is 121/66, pulse of 82, respiration is 18, temperature is 97.6 degrees. General: Mr. Elizabeth is a 36-year-old male. He is in bed. He did not seem to be in any distress. HEENT: Mucosa is pink and moist. Anicteric and acyanotic. Neck: Supple. Chest: Air entry is bilaterally reduced. There are diffuse bilateral crepitations in both lung simons, worse on the left. Cardiovascular: Regular rate and rhythm. No murmurs. No rubs. No gallops. Abdomen: Soft, nontender. Extremities: No pedal edema. DIRECTOR PHONE: Patient is alert and oriented x4. No focal neurological deficit. LABORATORY DATA: WBC is 6.96, hemoglobin is 12.3, platelet count of 217,000. Chemistry is reviewed. Sodium is 137, potassium is 3.2, chloride is 99, bicarb is 25, glucose is normal, A1c 10.1, calcium is 8.6. Vitamin D is 7.2. CT scan of the chest was done on the day of presentation which showed bilateral nodular infiltrates less pronounced than the prior study, though the pattern is similar with more consolidation left lower lobe. Findings are consistent with persistent or recurrent pneumonia or inflammatory process. Atypical microorganism she be considered. Bronchoscopy may be beneficial. ASSESSMENT: 1. Left lower lobe pneumonia. This seems to be recurrent. The patient has been treated at least twice in the past for the same. He used to follow up with Dr. Duran and also Dr. Ritter. According to him, he gets better and then he kind of loses follow up and then he gets sick again. I think he is probably just not compliant since his glucose and other comorbidities are also out of whack. 2. History of asthma. 3. Diabetes mellitus with presenting A1c of 10.1. The patient is currently on glargine. We will continue with the sliding scale to cover for his meal needs. 4. Vitamin D deficiency. We will replace this. 5. Hypokalemia. Will also replace that. PLAN: So in general Mr. Elizabeth is a 36-year-old male who presented here yesterday because of cough expectoration and some low-grade fever. He was discharged from [facility] May last year, apparently treated for pneumonia. He was supposed to follow up with Dr. Duran and Dr. Ritter. Patient has been admitted at least 3 times because of this left lower lobe infection. He is currently getting antibiotics. He seems to be improving. We are going to continue with current antibiotics. I have ordered IgG levels as well as sputum cultures and mycobacterium cultures, AFB stains. I have also requested for a vascularity work up to see if there is any underlying vasculitis. I think the patient will need to see a arts and humanities council director. He was seen before by Dr. Ritter. I do not think they will be able to do any procedure here in terms of bronchoscopy. I will try and see if I can get in touch with [facility] for possible bronchoscopy. cc: Gui Crabtree MD MTDD
[2016-11-27] MEDS: ROCEPHIN 1 GM/NS 1 GM/50 ML IVPB IV SCH (20:53)
[2016-11-27] MEDS: LANTUS INSULIN (PARKWAY) SUBQ SCH (20:54)
[2016-11-28] MEDS: HUMULIN R (PARKWAY) SUBQ SCH ×4 (06:45→21:03)
[2016-11-28 08:38] LABS: BASO% 0.2 % (0.0-0.8); EOS# 0.08 X1000 (0.0-0.7); EOS% 1.6 % (0.0-10.0); HEMOGLOBIN 12.5 g/dL (14.0-18.0); IMM GRAN# 0.01 X1000 (0.0-0.04); IMM GRAN% 0.2 % (0.0-0.5); LYMPH# 1.79 X1000 (1.2-3.4); MANUAL DIFF NEEDED? NO; MCH 23.5 PG (27-31); MCHC 32.1 g/dL (33-37); MCV 73.2 FL (81-99); MONO# 0.43 X1000 (0.11-0.59); MONO% 8.4 % (1.7-9.3); MPV 9.8 FL (7.4-10.4); NEUT% 54.6 % (42.2-75.2); PLT 227 X1000 (130-400); RBC 5.33 XMIL (4.7-6.1)
[2016-11-28 09:01] LABS: AGAP 11; BUN 10 mg/dL (8-22); CALCIUM 8.9 mg/dL (8.8-10.2); CHLORIDE 102 mmol/L (98-107); COSMO 275; POTASSIUM 3.7 mmol/L (3.5-5.1); SODIUM 137 mmol/L (136-145); TCO2 23 mmol/L (25-35)
[2016-11-28] MEDS: FLONASE NAS SCH (09:12)
[2016-11-28] MEDS: NEURONTIN PO SCH (09:13)
[2016-11-28] MEDS: ZYRTEC PO SCH (09:13)
[2016-11-28] MEDS: ZITHROMAX 500 MG/NS 500 MG/250 ML IVPB IV SCH (09:13)
[2016-11-28] MEDS: VITAMIN D PO SCH (09:13)
[2016-11-28] MEDS: NS 1,000 ML IV SCH ×2 (09:13→21:02)
[2016-11-28 10:12] LABS: HIV ANTIBODY SCREEN SEE COMMENTS
--- NOTE | 2016-11-28 14:22 | PROGRESS NOTE ---
DATE: 11/28/2016 SUBJECTIVE: This patient states that he is feeling much better. I talked to the patient and he had this kind of problems back in May 2016. He is still coughing up some greenish sputum. No fever. No chills. OBJECTIVE: Vital Signs: Temperature 97.4 degrees, pulse 99, respiratory rate 22, blood pressure 118/71, O2 saturation 99 on room air. HEENT: Head normocephalic. No trauma. PERRLA. Neck: Supple. No JVD. No masses. Central trachea. Cardiovascular: RRR. No murmurs. Chest: Decreased air entry bilaterally. Diffuse rhonchi bilaterally but worse on the left side. Abdomen: Soft, nontender, nondistended. No hepatosplenomegaly. Extremities: No edema. No clubbing. No cyanosis. Neurological: The patient is alert and oriented x4. No focal neurological deficits. LABORATORY: WBC 5.1, hemoglobin 12.5, hematocrit 39, platelets 227,000. Sodium 137, potassium 3.7, chloride 102, bicarbonate 23, BUN 10, creatinine 0.5. Glucose 141. Calcium 8.9. Hemoglobin A1c is 10.1. HIV is negative. IgG is 780, the normal value is from 700-1600, so this is borderline low. This patient has been followed by Dr. Duran, Infectious Disease doctor. Probably he will need to continue with this. MAY is negative and ANCA panel for vasculitis is negative. Influenza A and B are negative as well. CT scan done a few days ago showed bilateral nodular infiltrates and less pronounced than the prior study but probably there is more consolidation on the left lower lobe. ASSESSMENT AND PLAN: 1. Left lower lobe pneumonia. This is recurrent. This patient has been seeing Dr. Duran and Dr. Ritter from Pulmonary Department. We have a result of hemoglobin A1c that showed that it is 10. That means that the blood sugar has not been controlled or the patient is noncompliant with the medications. Also he has a borderline low IgG. 2. History of asthma not in exacerbation. 3. Type 2 diabetes with a hemoglobin A1c of 10.1, continue with the same management for now. 4. Vitamin D deficiency. Will replace this. 5. Hypokalemia. Resolved. Overall, this patient is doing better. She was discharged from [facility] last year in May and was treated for pneumonia at that time. Apparently he follows up with Dr. Duran and Dr. Ritter and also he was referred to an ENT doctor for sinus infection. We will continue with the same antibiotics. It looks like he is getting better. The sputum culture did not show any specific bacteria and blood culture has been negative so far. MAY and ANCA are negative. This patient should be monitored by his recreation facilities supervisor and probably also by his infectious disease doctor upon discharge. Probably I will discharge this patient tomorrow if this patient is doing better. cc: Tico Alanis MD
[2016-11-28] MEDS: ROCEPHIN 1 GM/NS 1 GM/50 ML IVPB IV SCH (21:02)
[2016-11-28] MEDS: LANTUS INSULIN (PARKWAY) SUBQ SCH (21:03)
[2016-11-29] MEDS: HUMULIN R (PARKWAY) SUBQ SCH ×2 (06:33→12:10)
[2016-11-29] MEDS: NS 1,000 ML IV SCH (09:13)
[2016-11-29] MEDS: NORCO-7.5 PO PRN (09:17)
[2016-11-29] MEDS: VITAMIN D PO SCH (09:18)
[2016-11-29] MEDS: ZYRTEC PO SCH (09:18)
[2016-11-29] MEDS: NEURONTIN PO SCH (09:18)
[2016-11-29] MEDS: ZITHROMAX 500 MG/NS 500 MG/250 ML IVPB IV SCH (09:19)
[2016-11-29] MEDS: FLONASE NAS SCH (09:19)
[2016-11-29 12:16] VITALS: BP 138/87
--- NOTE | 2016-11-29 19:39 | DISCHARGE SUMMARY ---
ADMISSION DATE: 11/26/2016 DISCHARGE DATE: 11/29/2016 PRIMARY CARE PHYSICIAN: MORENITA Kam at [facility]. ADMISSION DIAGNOSES: 1. A left basilar pneumonia. 2. A history of asthma. 3. Diabetes type 2. DISCHARGE DIAGNOSES: 1. Left lower lobe pneumonia recurrent. 2. History of asthma. 3. Diabetes type 2. 4. Vitamin D deficiency. 5. Hypokalemia that is resolved. SUMMARY OF FINDINGS: This is a 36-year-old male who presented to the ER with complaints of body aches, cough that was productive, congestion, sore throat and chills. On arrival to the emergency room he had a temperature of 99.8 degrees. Chest x-ray showed a left basilar pneumonia. A chest CT was obtained that showed bilateral nodular infiltrates. The pattern is similar with more confluent consolidation of the left lobe consistent with a persistent or recurrent pneumonia or inflammatory process, atypical microorganisms should be considered. He has had multiple admissions in the past for this pneumonia. He is currently being followed by Dr. Ritter from pulmonology and Dr. Duran and he had also been referred to ENT for a sinus infection. His hemoglobin A1c was noted to be 10 with. It is noted that he has borderline low IgG. Sputum culture did not show any specific bacteria. Blood culture was negative. MAY and ANCA were negative. White blood cells have remained normal. We also did an HIV 1 and 2 antibody screen that was nonreactive. Influenza A and B were negative. TB test was negative and he was placed on antibiotics and has clinically improved and so it is felt that he can safely be discharged home today. DISCHARGE MEDICATION: Amoxicillin 875 p.o. q.12 hours #14 no refills, Zithromax 250 mg p.o. daily #3 with no refills, vitamin D3 1000 units p.o. daily, Colace 100 mg p.o. t.i.d. p.r.n., Flonase nasal spray daily, Neurontin 100 mg p.o. daily, [place] 7.5 one p.o. q.6 hours p.r.n. #10 with no refills, Lantus Pen 50 units subcu q.p.m., Glucophage 1000 mg p.o. b.i.d., simethicone 50 mg p.o. p.r.n. #10 with no refills. FOLLOWUP: He will need to follow up with his primary care physician in 1-2 weeks. He will need to follow up with Infectious Disease in [address] Duran and Dr. Ritter in 2 weeks. DISCHARGE INSTRUCTIONS: All discharge instructions were reviewed with the patient and he verbalized understanding. A 35-minute discharge. Dictated by MORENITA Fu for Tico Alanis MD cc: MD Tico Garcia MD Dr. Najjar
[2016-11-29] MEDS ORDERED: AUGMENTIN PO SCH (21:00)
[2016-11-30] MEDS ORDERED: ZITHROMAX PO SCH (09:00)
== END 2016-11-29 14:05 | disposition home or self-care (01) ==
LOC: P.ED 17:48 → P.MEDSURG 11-26 01:34 → SUATTDRO 11-26 01:34
PROVIDERS: ATTEND Internal Medicine

== ENCOUNTER 2019-04-20 09:36 | Inpatient (IN) ==
[2019-04-20] MEDS ORDERED: TYLENOL PO ONE (10:02)
[2019-04-20] MEDS ORDERED: NS 1,000 ML IV ONE (10:02)
--- NOTE | 2019-04-20 10:18 | Diag Imaging Result Doc PS360 ---
CHEST-PORTABLE - 04/20/2019 INDICATION: cough with fever COMPARISON: 02/20/2018 FINDINGS: Lung volumes are much lower. There is some recurrent or accentuated mild left basilar infiltrate in the lateral costophrenic angle. Heart size is grossly normal. There is also probably some mild infiltrate in the medial right lung base. IMPRESSION: Bilateral basilar infiltrates concerning for pneumonia. Recommend treatment and follow-up until clear. Electronically signed by Tirso Gamez 04/20/2019 10:15 AM
[2019-04-20] MEDS ORDERED: ZITHROMAX 500 MG/NS 500 MG/250 ML IVPB IV ONE (10:26)
[2019-04-20] MEDS ORDERED: ROCEPHIN 1 GM in NS 50 ML IV ONE (10:26)
--- NOTE | 2019-04-20 10:26 | PROVIDER DOCUMENTATION ---
This chart was entered by Flor Ruiz Scribe, acting as scribe for Cher Sandoval CRNP. HPI-Respiratory General - General Chief Complaint: General Adult Stated Complaint: ASTHMA,CHEST HURTS,FEVER,EXTREMITY PAIN Time Seen by Provider: 04/20/19 09:47 Source: patient Allergies/Adverse Reactions: Patient Allergies Allergy/AdvReac Type Severity Reaction Status Date / Time orange flavor Allergy Severe SWELLING Verified 11/11/17 08:24 Sulfa (Sulfonamide Allergy Intermediate HIVES Verified 11/11/17 08:24 Antibiotics) [Sulfa(Sulfonamide Antibiotics)] orange juice [George Juice] AdvReac Severe SWELLING Verified 11/11/17 08:24 Oranges Allergy Severe ANAPHYLAXIS Uncoded 11/11/17 08:24 Home Medications: Home Medication List Medication Instructions Recorded Confirmed Last Taken Type Gabapentin [Neurontin] 300 mg PO BID 01/20/16 02/20/18 02/19/18 08:00 History Insulin Glargine [Lantus] 35 unit SUBQ QPM 06/11/16 02/20/18 02/19/18 22:00 History Albuterol Sulfate [Proair Hfa] 2 puff INH Q4H PRN 11/11/17 02/19/18 02/19/18 17:00 History Albuterol [Albuterol Neb] INH Q4H PRN 11/11/17 02/19/18 17:00 History Aspirin 325 mg PO DAILY 11/11/17 02/20/18 02/19/18 08:00 History Calcium Carbonate/Vitamin D3 1 tab PO DAILY 11/11/17 02/20/18 02/19/18 08:00 History [Calcium 500+D Tablet] Cetirizine [Zyrtec] 10 mg PO DAILY 11/11/17 11/11/17 02/19/18 08:00 History Docusate Sodium [Dulcoease] 100 mg PO BID 11/11/17 02/20/18 02/19/18 08:00 History Ferrous Sulfate 325 mg PO BID 11/11/17 11/11/17 Unknown History Fluticasone 50 Mcg Nasal [place] 2 spray SHANT BID 11/11/17 11/11/17 02/19/18 08:00 History [Flonase] Insulin Aspart [Novolog Flexpen] 10 units SUBQ ORDERED 11/11/17 02/20/18 02/19/18 12:25 History Losartan [Cozaar] 25 mg PO DAILY 11/11/17 02/20/18 02/19/18 08:00 History Mometasone/Formoterol [Dulera 100 2 puff INH BID 11/11/17 02/20/18 02/19/18 08:00 History Mcg/5 Mcg Inhaler] Montelukast [Singulair] 10 mg PO QHS 11/11/17 02/20/18 02/19/18 22:00 History Multivit-Minerals/FA/Lycopene [One 1 tab PO DAILY 11/11/17 02/20/18 02/19/18 08:00 History Daily For Men Tablet] Oxycodone HCl 5 mg PO Q6H PRN 11/11/17 02/20/18 Unknown History Pantoprazole [Protonix] 20 mg PO DAILY 11/11/17 02/20/18 02/19/18 08:00 History Prednisone 40 mg PO DAILY 11/11/17 02/20/18 02/19/18 08:00 History Levofloxacin [Levaquin] 500 mg PO DAILY #10 tab 02/20/18 Unknown Rx Naproxen Sodium [Aleve] 220 mg PO ORDERED PRN 02/20/18 02/20/18 02/19/18 08:00 History Zinc 50 mg PO DAILY 02/20/18 02/20/18 02/19/18 08:00 History - History of Present Illness-Resp Nature of Presenting Problem: Patient is a 39 year old male who presents with shortness of breath. States fever, cough and body aches with shortness of breath. Report history of i nterstitial lung disease and diabetes. Denies history of cardiac issues. Quality of Pain: reports: tightness Severity in ED: reports: mild Onset/Duration: reports: gradual Timing: reports: still present, getting worse Cough Quality/Degree: reports: moderate Current Respiratory Medication Therapy: Initiated see nurses note Associated Symptoms: reports: cough, fever/chills (fever), muscle/bodyaches (bodyaches), shortness of breath Similar Symptoms Previously?: Yes Recently seen or treated by another doctor?: No Review of Systems - Adult - REVIEW OF SYSTEMS - ADULT Constitutional: reports: see HPI, fever. denies: chills, fatique Eyes: reports: no symptoms reported Ears, Nose, Mouth & Throat: reports: no symptoms reported Cardiovascular: reports: no symptoms reported Respiratory: reports: see HPI, cough, shortness of breath. denies: wheezing Gastrointestinal: reports: no symptoms reported Genitourinary: reports: no symptoms reported Musculoskeletal: reports: see HPI, muscle aches. denies: back pain, neck pain Integumentary: reports: no symptoms reported Neurological: reports: no symptoms reported Psychiatric: reports: no symptoms reported Endocrine: reports: no symptoms reported Hematologic/Lymphatic: reports: no symptoms reported Allergic/Immunologic: reports: no symptoms reported All Other Systems: Reviewed and Negative Past History - Adult - PAST MEDICAL HISTORY-ADULT Review of Records: reports: Old Records Reviewed, Social history reviewed & non- contributory. Major Childhood Illnesses: reports: denies history Cardiovascular: reports: CHF, HTN Respiratory: reports: asthma, pneumonia, other (interstitial lung disease) Gastrointestinal: reports: denies history Obstetrical/Gynecological: reports: denies history Genitourinary: reports: denies history Musculoskeletal: reports: denies history Neurological: reports: denies history Psychiatric: reports: denies history Endocrine/Immune: reports: Diabetes Other Conditions: reports: denies history - PRIOR SURGERIES/PROCEDURES Surgical/Procedure History: reports: reviewed, not pertinent, other (sinus) - IMMUNIZATION STATUS Childhood Immunizations: See Nurse Assessment Flu Vaccine: See Nurse Assessment - FAMILY HISTORY Family History: reviewed, not pertinent - SOCIAL HISTORY Smoking: denies Substance Use: denies Physical Exam-General - PHYSICAL EXAM-ADULT Initial Vital Signs Reviewed: Yes - CONSTITUTIONAL General Appearance: alert, no apparent distress. negative: lethargic - EYES Eyes: PERRL/EOMI, pink conjunctivae. negative: scleral icterus - HEAD, EARS, NOSE, MOUTH & THROAT HENMT: normocephalic/atraumatic, moist mucous membranes. negative: angioedema - NECK Neck: non-tender, normal inspection. negative: lymphadenopathy - RESPIRATORY Respiratory: chest non-tender, lungs clear, normal breath sounds. negative: respiratory distress, crackles, rales, wheezing - CARDIOVASCULAR Cardiovascular: normal peripheral pulses, tachycardia. negative: systolic murmur - GASTROINTESTINAL (ABDOMEN) Abdominal Exam: normal bowel sounds, non tender, soft. negative: guarding, rigid - MUSCULOSKELETAL Back Exam: normal inspection, no CVA tenderness, no vertebral tenderness. neg ative: ecchymosis Extremity: normal range of motion, non-tender, normal inspection. negative: deformity - SKIN Integumentary: normal color, normal turgor, warm/dry. negative: ecchymosis, jaundice, rash - NEUROLOGIC Neurologic: grossly normal, no motor/sensory deficits. negative: aphasia - PSYCHIATRIC Psych/Mental Status: normal mood/affect, normal thought content, normal thought process, oriented x 3. negative: anxious, paranoid - HEART Score HEART Score: History: Slightly Suspicious HEART Score: ECG: Normal HEART Score: Age: < or = 45 Years HEART Score: Risk Factors for Atherosclerotic Disease: 1 or 2 Risk Factors HEART Score: Troponin: < or = Normal Limit Total HEART Score:: 1 Progress - PLAN OF CARE/RESULTS Progress/Plan/Lab Results: Vital Signs - 8 hr 04/20/19 09:41 Temperature 100.3 F H Pulse Rate 120 H Respiratory Rate 16 Blood Pressure 98/61 O2 Sat by Pulse Oximetry 96 Laboratory Results - last 24 hr 04/20/19 04/20/19 04/20/19 10:11 10:20 10:20 WBC 12.84 H RBC 5.74 Hgb 13.1 L Hct 39.8 L MCV 69.3 L MCH 22.8 L MCHC 32.9 L RDW Std Deviation 15.3 H Plt Count 245 MPV 10.5 H Immature Gran % (Auto) 0.2 Neut % (Auto) 79.3 H Lymph % (Auto) 10.8 L [place] % (Auto) 9.2 Eos % (Auto) 0.4 Baso % (Auto) 0.1 Immature Gran # (Auto) 0.03 Neut # (Auto) 10.18 H Lymph # (Auto) 1.39 [place] # (Auto) 1.18 H Eos # (Auto) 0.05 Baso # (Auto) 0.01 PT INR PTT (Actin FS) Sodium 135 L Potassium 3.4 L Chloride 99 Carbon Dioxide 20 L Anion Gap 16 BUN 14 Creatinine 0.7 Estimated GFR/1.73 m2 > 60 BUN/Creatinine Ratio 20 Glucose 325 H POC Glucose 296 H Calculated Osmolality 283 Calcium 9.0 Total Bilirubin 0.39 AST 9 L ALT 9 L Alkaline Phosphatase 109 Creatine Kinase 33 Troponin T Total Protein 6.6 Albumin 4.0 Globulin 2.6 Albumin/Globulin Ratio 1.5 Plasma Lactate Acetone Level SMALL A 04/20/19 04/20/19 04/20/19 10:20 10:20 10:45 WBC RBC Hgb Hct MCV MCH MCHC RDW Std Deviation Plt Count MPV Immature Gran % (Auto) Neut % (Auto) Lymph % (Auto) [place] % (Auto) Eos % (Auto) Baso % (Auto) Immature Gran # (Auto) Neut # (Auto) Lymph # (Auto) [place] # (Auto) Eos # (Auto) Baso # (Auto) PT 13.8 INR 1.05 PTT (Actin FS) 41.2 Sodium Potassium Chloride Carbon Dioxide Anion Gap BUN Creatinine Estimated GFR/1.73 m2 BUN/Creatinine Ratio Glucose POC Glucose Calculated Osmolality Calcium Total Bilirubin AST ALT Alkaline Phosphatase Creatine Kinase Troponin T < 0.010 Total Protein Albumin Globulin Albumin/Globulin Ratio Plasma Lactate 1.3 Acetone Level Orders Category Date Time Status Cardiac Monitoring DIRECTED Care 04/20/19 10:53 Active FSBS [Finger Stick Blood Sugar (ED)] DIRECTED Care 04/20/19 10:00 Completed IV Insertion ORDERED Care 04/20/19 10:53 Completed Notify MD of + Sepsis Screen NOW Care 04/20/19 10:53 Completed Saline Loc NOW Care 04/20/19 10:00 Active CHEST-PORTABLE [RAD] Stat Exams 04/20/19 10:02 Completed ABG [RESP] Routine Lab 04/20/19 11:36 Ordered ACETONE SERUM [CHEM] Stat Lab 04/20/19 10:20 Completed BLOOD CULTURE [BLDCUL] Stat Lab 04/20/19 10:20 Results CBC WITH ELECTRONIC DIFF [HEME] Stat Lab 04/20/19 10:20 Results CK PROFILE [SP CHEM] Stat Lab 04/20/19 10:20 Completed COMPREHENSIVE METABOLIC PANEL [CHEM] Stat Lab 04/20/19 10:20 Completed LACTATE, PLASMA [CHEM] Stat Lab 04/20/19 10:45 Completed PROTIME WITH INR [COAG] Stat Lab 04/20/19 10:20 Completed PTT [COAG] Stat Lab 04/20/19 10:20 Completed TROPONIN T Stat Lab 04/20/19 10:20 Completed URINALYSIS W/POSS RFLX CULT [URINALYSIS] Stat Lab 04/20/19 10:01 Uncollected 0.9% Sodium Chloride Inj [Ns] 1,000 ml Med 04/20/19 10:02 Discontinued IV 999 mls/hr Acetaminophen [Tylenol] Med 04/20/19 10:02 Discontinued 1,000 mg PO NOW ONE Azithromycin 500 mg/Ns [Zithromax 500 mg/Ns] Med 04/20/19 10:26 Discontinued 500 mg in 250 ml IV NOW CefTRIAXONE [Rocephin] 1 gm Med 04/20/19 10:26 Discontinued 0.9% Sodium Chloride Inj [Ns] 50 ml IV NOW Insulin Human Regular [Humulin R] Med 04/20/19 11:35 Discontinued 10 unit IV NOW ONE Oxygen Device Stat Oth 04/20/19 10:53 Active EKG [EKG] Stat Ther 04/20/19 10:00 Draft Laboratory Tests 04/20/19 04/20/19 04/20/19 10:11 10:20 10:20 WBC 12.84 H RBC 5.74 Hgb 13.1 L Hct 39.8 L MCV 69.3 L MCH 22.8 L MCHC 32.9 L RDW Std Deviation 15.3 H Plt Count 245 MPV 10.5 H Immature Gran % (Auto) 0.2 Neut % (Auto) 79.3 H Lymph % (Auto) 10.8 L [place] % (Auto) 9.2 Eos % (Auto) 0.4 Baso % (Auto) 0.1 Immature Gran # (Auto) 0.03 Neut # (Auto) 10.18 H Lymph # (Auto) 1.39 [place] # (Auto) 1.18 H Eos # (Auto) 0.05 Baso # (Auto) 0.01 PT INR PTT (Actin FS) Sodium 135 L Potassium 3.4 L Chloride 99 Carbon Dioxide 20 L Anion Gap 16 BUN 14 Creatinine 0.7 Estimated GFR/1.73 m2 > 60 BUN/Creatinine Ratio 20 Glucose 325 H POC Glucose 296 H Calculated Osmolality 283 Calcium 9.0 Total Bilirubin 0.39 AST 9 L ALT 9 L Alkaline Phosphatase 109 Creatine Kinase 33 Troponin T Total Protein 6.6 Albumin 4.0 Globulin 2.6 Albumin/Globulin Ratio 1.5 Plasma Lactate Acetone Level SMALL A 04/20/19 04/20/19 04/20/19 10:20 10:20 10:45 WBC RBC Hgb Hct MCV MCH MCHC RDW Std Deviation Plt Count MPV Immature Gran % (Auto) Neut % (Auto) Lymph % (Auto) [place] % (Auto) Eos % (Auto) Baso % (Auto) Immature Gran # (Auto) Neut # (Auto) Lymph # (Auto) [place] # (Auto) Eos # (Auto) Baso # (Auto) PT 13.8 INR 1.05 PTT (Actin FS) 41.2 Sodium Potassium Chloride Carbon Dioxide Anion Gap BUN Creatinine Estimated GFR/1.73 m2 BUN/Creatinine Ratio Glucose POC Glucose Calculated Osmolality Calcium Total Bilirubin AST ALT Alkaline Phosphatase Creatine Kinase Troponin T < 0.010 Total Protein Albumin Globulin Albumin/Globulin Ratio Plasma Lactate 1.3 Acetone Level Discussed results and plan of care with patient. Patient agrees with plan and verbalizes understanding. Result Diagrams: 04/20/19 10:20 04/20/19 10:20 - XRAY 1 XRAY Study: Chest Impression: See EMR Report ( CHEST-PORTABLE - 04/20/2019 INDICATION: cough with fever COMPARISON: 02/20/2018 FINDINGS: Lung volumes are much lower. There is some recurrent or accentuated mild left basilar infiltrate in the lateral costophrenic angle. Heart size is grossly normal. There is also probably some mild infiltrate in the medial right lung base. IMPRESSION: Bilateral basilar infiltrates concerning for pneumonia. Recommend treatment and follow-up until clear. Electronically signed by Tirso Gamez 04/20/2019 10:15 AM 04/20/19 1015 Interpreting Physician: Tirso Gamez MD Dictated Date/Time: 04/20/19 1014 cc: Cher Sandoval; BASSAM ASTORGA O. DO) - CONSULTS/PCP/HOSPITALIST Notification #1 *Consult/PCP/Hospitalist*: Mirta Sullivan Time Discussed: 11:42 Reason/Comments: Admission Consult Disposition: Will see in ED, Admit Departure - Departure Date of Disposition Decision: 04/20/19 Time of Disposition Decision: 11:40 DIAGNOSIS: DKA (diabetic ketoacidoses) Qualifiers: Diabetes mellitus type: other specified (including IVAN) Diabetes mellitus complication detail: without coma Qualified Code(s): E13.10 - Other specified diabetes mellitus with ketoacidosis without coma Pneumonia Qualifiers: Pneumonia type: due to unspecified organism Laterality: bilateral Lung locati on: unspecified part of lung Qualified Code(s): J18.9 - Pneumonia, unspecified organism Disposition: ADMITTED INPATIENT 09 Certified Medical Emergency: Emergent Condition: Stable Referrals and Follow-Ups: BASSAM ASTORGA DO [Primary Care Provider] - - Critical Care Note This patient required my direct & personal management of CC.: Yes Total Time (mins): 35 Critical Care Statement: This patient required my direct personal management to treat or rule out processes, the absence of which, could potentiallly result in sudden, clinically significant life or limb threatening deterioration. Attestation - Physician/ KRISTINA Attestation Patient care was provided by Advanced Practice Provider:: Yes Advanced Practice Provider:: Cher Sandoval Advanced Practice Provider documentation review:: The Mid-level provider documentation, treatment plan and medical decision making was reviewed by the physician who agrees with all treatment and medical decision making by the MLP. The physician spent face to face time with patient:: No Advanced Practice Provider documentation review:: Supervising physician onsite and consulted in the evaluation and care of this patient. The physician did not have a face to face encounter with the patient. This chart was documented by the indicated scribe, (Flor Ruiz Scribe) and accurately reflects the services I performed and decisions made by me, Cher Sandoval CRNP, as attested by the provider's signature.
[2019-04-20 10:47] LABS: BASO# 0.01 X1000 (0.0-0.2); BASO% 0.1 % (0.0-0.8); EOS# 0.05 X1000 (0.0-0.7); EOS% 0.4 % (0.0-10.0); HEMATOCRIT 39.8 % (42.0-52.0); HEMOGLOBIN 13.1 g/dL (14.0-18.0); IMM GRAN# 0.03 X1000 (0.0-0.04); IMM GRAN% 0.2 % (0.0-0.5); LYMPH# 1.39 X1000 (1.2-3.4); LYMPH% 10.8 % (20.5-51.1); MCH 22.8 PG (27-31); MCHC 32.9 g/dL (33-37); MCV 69.3 FL (81-99); MONO# 1.18 X1000 (0.11-0.59); MONO% 9.2 % (1.7-9.3); MPV 10.5 FL (7.4-10.4); NEUT# 10.18 X1000 (1.4-6.5); NEUT% 79.3 % (42.2-75.2); PLT 245 X1000 (130-400); RBC 5.74 XMIL (4.7-6.1); RDW 15.3 % (11.5-14.5); WBC 12.84 X1000 (4.8-10.8)
[2019-04-20 11:01] LABS: AGAP 16; ALB/GLOB RATIO 1.5; ALKALINE PHOSPHATASE 109 U/L (32-122); BUN 14 mg/dL (8-22); CHLORIDE 99 mmol/L (98-107); CK PROFILE 33 U/L (24-204); COSMO 283; CREATININE 0.7 mg/dL (0.7-1.2); ESTIMATED GFR > 60; GLUCOSE 325 mg/dL (70-104); GOT 9 U/L (10-34); GPT 9 U/L (10-44); POTASSIUM 3.4 mmol/L (3.5-5.1); SODIUM 135 mmol/L (136-145); TCO2 20 mmol/L (25-35); TOTAL BILIRUBIN 0.39 mg/dL (0.20-1.00); TOTAL PROTEIN 6.6 g/dL (6.3-8.3)
[2019-04-20 11:10] LABS: INR 1.05; PROTIME 13.8 Seconds (11.0-16.0)
[2019-04-20 11:11] LABS: PTT 41.2 Seconds (22.3-41.8)
[2019-04-20 11:14] LABS: ACETONE SERUM SMALL (NEGATIVE)
--- NOTE | 2019-04-20 11:17 | EKG Report ---
Test Performed on : 04/20/2019 11:05:30 AM Test Reason : CP Blood Pressure : / mmHG Vent. Rate : 110 BPM Atrial Rate : 110 BPM P-R Int : 144 ms QRS Dur : 082 ms QT Int : 292 ms P-R-T Axes : 055 027 057 degrees QTc Int : 395 ms Sinus tachycardia. Possible Left atrial enlargement Nonspecific ST and T wave abnormality Abnormal ECG When compared with ECG of 19-FEB-2018 22:51, No significant change was found Unconfirmed Result
--- NOTE | 2019-04-20 11:24 | ED EKG INTERP ---
This chart was entered by Flor Ruiz Scribe, acting as scribe for Sancho Wagoner MD. EKG Interpretation - EKG Time of EKG reading by physician:: 11:05 EKG Read and Signed by:: Sancho Wagoner EKG Interpretation (*Must complete 3 of following elements*): Abnormal Rate: 110 Rhythm: sinus tachycardia [place]: normal [place] Interval: normal Comments: possible left atrial enlargement; nonspecific ST and T wave abnormality Attestation - Physician/ KRISTINA Attestation Patient care was provided by Advanced Practice Provider:: Yes Advanced Practice Provider:: Cher Sandoval Advanced Practice Provider documentation review:: The Mid-level provider documentation, treatment plan and medical decision making was reviewed by the physician who agrees with all treatment and medical decision making by the P. The physician spent face to face time with patient:: No Advanced Practice Provider documentation review:: Supervising physician onsite and consulted in the evaluation and care of this patient. The physician did not have a face to face encounter with the patient. This chart was documented by the indicated scribe, (Flor Ruiz Scribe) and accurately reflects the services I performed and decisions made by me, Sancho Wagoner MD, as attested by the provider's signature.
[2019-04-20] MEDS ORDERED: HUMULIN R IV ONE (11:35)
[2019-04-20 11:54] LABS: BE -1.3 mmoll (-3.0-3.0); BLOOD TYPE ARTERIAL; HCO3-(ACT) 23.9 mmoll (20.0-26.0); METHB 1.3 % (0.0-1.5); O2(CT) 16.3 mL/dL (15.0-23.0); O2HB 95.5 % (95.0-99.0); PCO2(98.6) 35 mmHg (35-45); PO2(98.6) 80 mmHg (60-100); SAMPLE BLOOD; SAO2 98.7 % (95.0-100.0); THB 12.1 g/dL (11.5-17.4); pH(98.6) 7.42 (7.35-7.45)
[2019-04-20 11:55] LABS: ALLEN TEST YES; MODALITY ROOM AIR
[2019-04-20] MEDS ORDERED: DUONEB (A & A) INH PRN (13:01)
[2019-04-20] MEDS ORDERED: HUMULIN R 100 UNIT in NS 100 ML IV SCH ×2 (13:15→13:34)
[2019-04-20] MEDS: NS 1,000 ML IV SCH ×6 (14:56→17:08)
[2019-04-20] MEDS: SOLU-MEDROL IV SCH ×2 (14:58→20:23)
[2019-04-20] MEDS ORDERED: SODIUM PHOSPHATE 30 MMOL in D5W 250 ML IV PRN (15:00)
[2019-04-20] MEDS ORDERED: POTASSIUM CHLORIDE 40 MEQ/SWI 40 MEQ/100 ML IVPB IV PRN (15:00)
[2019-04-20] MEDS ORDERED: POTASSIUM CHLORIDE 10% LIQUID PO PRN (15:00)
[2019-04-20] MEDS ORDERED: POTASSIUM CHLORIDE 20 MEQ/SWI 20 MEQ/100 ML IVPB IV PRN (15:00)
[2019-04-20] MEDS ORDERED: SODIUM BICARBONATE 8.4% 100 MEQ in STERILE WATER INJ. 500 ML IV PRN (15:00)
[2019-04-20] MEDS ORDERED: D50W SYRINGE IV PRN (15:00)
[2019-04-20] MEDS ORDERED: MAGNESIUM SULFATE 2 GM/S.W.I. 2 GM/50 ML IVPB IV PRN (15:00)
[2019-04-20] MEDS ORDERED: POTASSIUM CHLORIDE 20% LIQUID PO PRN (15:00)
[2019-04-20] MEDS ORDERED: D5 NS 1,000 ML IV SCH (15:00)
[2019-04-20] MEDS: DUONEB (A & A) INH SCH ×3 (15:59→23:10)
[2019-04-20 16:08] LABS: AGAP 13; BUN 11 mg/dL (8-22); CALCIUM 8.7 mg/dL (8.8-10.2); CHLORIDE 103 mmol/L (98-107); COSMO 283; CREATININE 0.7 mg/dL (0.7-1.2); ESTIMATED GFR > 60; GLUCOSE 246 mg/dL (70-104); MAGNESIUM 1.7 mg/dL (1.5-2.7); PHOSPHORUS 3.4 mg/dL (2.7-4.5); POTASSIUM 3.4 mmol/L (3.5-5.1); SODIUM 138 mmol/L (136-145); TCO2 22 mmol/L (25-35)
[2019-04-20] MEDS ORDERED: NS 1,000 ML IV SCH (17:00)
[2019-04-20 18:37] LABS: URINE SOURCE CLEAN CATCH
[2019-04-20 18:45] LABS: BILIRUBIN URINE NEGATIVE (NEGATIVE); BLOOD URINE NEGATIVE (NEGATIVE); COLOR YELLOW; GLUCOSE URINE >1000 mg/dL (NEGATIVE); LEUKOCYTES URINE NEGATIVE (NEGATIVE); NITRITE URINE NEGATIVE (NEGATIVE); PH URINE 5.5; PROTEIN URINE NEGATIVE (NEGATIVE); SP GRAVITY URINE 1.044; TURBIDITY URINE CLEAR (CLEAR); UROBILINOGEN URINE NORMAL (NORMAL)
[2019-04-20 19:02] LABS: UR EPITHELIAL CELLS <10 /HPF (<10); URINE BACTERIA NEGATIVE /HPF; URINE RBC <10 /HPF (<10); URINE WBC <10 /HPF (<10)
[2019-04-20 19:03] LABS: KETONE URINE 10 mg/dL (NEGATIVE)
[2019-04-20 19:20] LABS: AGAP 11; BUN 10 mg/dL (8-22); CALCIUM 7.9 mg/dL (8.8-10.2); CHLORIDE 106 mmol/L (98-107); COSMO 282; CREATININE 0.6 mg/dL (0.7-1.2); ESTIMATED GFR > 60; GLUCOSE 227 mg/dL (70-104); MAGNESIUM 1.7 mg/dL (1.5-2.7); PHOSPHORUS 2.2 mg/dL (2.7-4.5); POTASSIUM 3.9 mmol/L (3.5-5.1); SODIUM 138 mmol/L (136-145); TCO2 21 mmol/L (25-35)
[2019-04-20] MEDS: NEURONTIN PO SCH (20:22)
[2019-04-20] MEDS: ROCEPHIN 1 GM in NS 50 ML IV SCH (20:22)
[2019-04-20] MEDS: 1/2 NS + KCL 20 MEQ 1,000 ML IV SCH (20:22)
[2019-04-20] MEDS: ZITHROMAX PO SCH (20:22)
[2019-04-20] MEDS: LANTUS INSULIN SUBQ SCH (20:23)
[2019-04-20] MEDS: NORCO-7.5 PO PRN (20:23)
[2019-04-20] MEDS: HUMALOG SUBQ SCH (20:24)
--- NOTE | 2019-04-20 22:46 | HISTORY AND PHYSICAL ---
CHIEF COMPLAINT: Asthma, shortness of breath, generalized body aches. HISTORY OF PRESENT ILLNESS: This is a 39-year-old gentleman with a history of diabetes mellitus, hypertension, interstitial lung disease, who presents to the emergency room complaining of generalized body aches with subjective fevers and cough that has been present for about 24 hours. He states that during the night, up into the morning, he started to develop shortness of breath at rest, prompting his arrival to the emergency room. He did have a temperature of 100.3 degrees on arrival. Chest x-ray revealed bilateral basilar infiltrates concerning for pneumonia. PAST MEDICAL HISTORY: 1. Diabetes mellitus type 2. 2. Interstitial lung disease. 3. Asthma. 4. Reported CHF. 5. Hypertension. PAST SURGICAL HISTORY: Sinus surgery. SOCIAL HISTORY: He denies alcohol, tobacco, or illicit drug use. He is , lives with his . ALLERGIES: Sulfa, orange juice which caused swelling and hives. HOME MEDICATIONS: A list will be obtained by the nursing staff, and once verified, we will review and restart as appropriate. REVIEW OF SYSTEMS: Discussed with the patient with pertinent positives stated in the HPI. He denied any syncope, dizziness, any chest pain or palpitations, a productive cough, any nausea, vomiting, diarrhea, constipation, black or bloody vomitus or stools, any hematuria, dysuria, frequency, urgency. PHYSICAL EXAMINATION: GENERAL: This is a 39-year-old gentleman who is lying on the stretcher in the emergency room in no distress. VITAL SIGNS: Blood pressure is 123/68, with a heart rate of 101. Respirations are 18. Temperature is 98.5, with room air saturations 96 to 98 percent. CARDIOVASCULAR: Regular rate and rhythm. S1 and S2 appreciated. He has no lower extremity edema. Calves are nontender bilaterally. Peripheral pulses palpable x4 extremities. PULMONARY: He has scattered expiratory wheezes throughout. Chest rises and falls symmetric to respiration. Chest wall is nontender to palpation. GASTROINTESTINAL: Abdomen is soft, nontender, nondistended, with bowel sounds in all 4 quadrants. NEUROLOGIC: He is alert and oriented x3. SKIN: Warm and dry. LABORATORY AND DIAGNOSTIC DATA: WBC is 12.8, with hemoglobin 13.1, hematocrit 39.8, platelets of 245,000. Sodium 135, potassium 3.4, CO2 is 20, with an anion gap of 16, BUN is 14, creatinine 0.7, with a glucose of 325. Urinalysis reveals greater than 1000 glucose with 20 ketones, and acetone is small. Blood cultures x2 are pending. Chest x-ray reveals bilateral basilar infiltrates concerning for pneumonia. ASSESSMENT: 1. Bibasilar pneumonia. 2. Diabetic ketoacidosis. 3. History of interstitial lung disease. 4. Asthma. 5. Hypertension. 6. Diabetes mellitus. 7. Leukocytosis secondary to pneumonia. PLAN: The patient will be admitted to a step-down unit with DKA protocol. We will continue antibiotic coverage of Rocephin and azithromycin, and further antibiotics will be culture driven. We will identify his home medications and continue these as appropriate. DuoNeb q.4 hours with q.2 hours p.r.n., incentive spirometer per Respiratory Therapy, with steroids to taper. For DVT prophylaxis, will use Lovenox, and GI prophylaxis, Prilosec. Further treatments pending hospital course. Plan was discussed with Dr. Crabtree. Dictated by MORENITA Farrell for Gui Crabtree MD cc: MORENITA Farrell MD
--- NOTE | 2019-04-20 23:30 | HISTORY AND PHYSICAL ---
ADDENDUM I have seen and examined Mr. Elizabeth today. Mr. Elizabeth is known to have diabetes mellitus, insulin dependent, follows up with Dr. Thornton in [place]. He is not very compliant with his medications. He gives the history of not having taking medication for a couple days, almost a week. He was really not able to tell me for certainty why he has not taken medication. In any case, came to the emergency department because he has also been having some cough with green expectoration and generalized pain. He came to the ER, was found to be in mild diabetic ketoacidosis and bilateral pneumonia, was subsequently admitted for further medical care. PHYSICAL EXAMINATION: His physical exam is positive for being slightly dry on physical exam. LUNGS: He also has some crackles in the posterior lung simons. CARDIOVASCULAR: Unremarkable. WRAPPER STEMMER HAND: Patient is awake, alert, and oriented. LAB WORK: Has also been reviewed. His current chemistry shows that his gap is closed and his bicarb is 22. The DKA is resolved. A chest x-ray seems to suggest bilateral basilar infiltrate concerning for pneumonia. ASSESSMENT: 1. Mild diabetic ketoacidosis on presentation. This has resolved. We are going to start the patient back on long-acting Lantus, pattern and sliding scale. 2. Bilateral lower lobe infiltrate concerning for pneumonia. The patient has been started on IV antimicrobial therapy. We will get sputum culture. Blood cultures have already been done. 3. Medical noncompliance. Patient has been counseled. 4. Microcytic anemia, concerning for underlying iron deficiency. Iron levels will be checked. Please refer to the details of the H and P, which has been dictated by the nurse practitioner in the chart. cc: Gui Crabtree MD
[2019-04-21] MEDS: DUONEB (A & A) INH SCH ×6 (04:16→23:37)
[2019-04-21] MEDS: SOLU-MEDROL IV SCH ×3 (06:12→21:31)
[2019-04-21] MEDS: PRILOSEC PO SCH (06:12)
[2019-04-21] MEDS: HUMALOG SUBQ SCH ×7 (06:12→21:34)
[2019-04-21 07:54] LABS: BASO# 0.01 X1000 (0.0-0.2); BASO% 0.1 % (0.0-0.8); HEMATOCRIT 36.4 % (42.0-52.0); HEMOGLOBIN 11.9 g/dL (14.0-18.0); LYMPH# 1.23 X1000 (1.2-3.4); LYMPH% 11.6 % (20.5-51.1); MCH 23.1 PG (27-31); MCHC 32.7 g/dL (33-37); MCV 70.5 FL (81-99); MONO# 0.19 X1000 (0.11-0.59); MONO% 1.8 % (1.7-9.3); MPV 10.8 FL (7.4-10.4); NEUT# 9.17 X1000 (1.4-6.5); NEUT% 86.5 % (42.2-75.2); PLT 230 X1000 (130-400); RBC 5.16 XMIL (4.7-6.1); RDW 15.5 % (11.5-14.5)
[2019-04-21 07:55] LABS: IRON SATURATION 7 %; TIBC 286 ug/dL; TOTAL IRON 19 ug/dL (53-167); UNBOUND IRON 267 ug/dL (112-346)
[2019-04-21 07:57] LABS: HEMOGLOBIN A1C 12.4 % (4.8-6.0)
[2019-04-21 08:02] LABS: AGAP 14; BUN 10 mg/dL (8-22); CALCIUM 8.2 mg/dL (8.8-10.2); CHLORIDE 102 mmol/L (98-107); COSMO 281; CREATININE 0.6 mg/dL (0.7-1.2); ESTIMATED GFR > 60; GLUCOSE 212 mg/dL (70-104); MAGNESIUM 1.8 mg/dL (1.5-2.7); POTASSIUM 4.4 mmol/L (3.5-5.1); SODIUM 138 mmol/L (136-145); TCO2 22 mmol/L (25-35)
[2019-04-21] MEDS: 1/2 NS + KCL 20 MEQ 1,000 ML IV SCH ×2 (08:02→21:30)
[2019-04-21] MEDS: LOVENOX SUBQ SCH (08:02)
[2019-04-21] MEDS: NEURONTIN PO SCH ×2 (08:02→21:31)
[2019-04-21] MEDS: ZITHROMAX PO SCH (08:02)
[2019-04-21 08:28] LABS: FERRITIN 295 ng/mL (30-400)
[2019-04-21 08:42] LABS: LYMPHS 14 % (21-51); MONO 4 % (1-9); SEGS 80 % (42-75)
[2019-04-21] MEDS: NORCO-7.5 PO PRN (15:32)
[2019-04-21] MEDS: ROCEPHIN 1 GM in NS 50 ML IV SCH (18:39)
--- NOTE | 2019-04-21 20:34 | PROGRESS NOTE ---
DATE: 04/21/2019 SUBJECTIVE: This morning, Mr. Elizabeth refers to be doing a lot better. He thinks his coughing is clearing up. OBJECTIVE: Vital Signs: Blood pressure is 134/79, pulse of 83, respiration is 18, temperature is 97.8 degrees. General: Mr. Elizabeth is a 39-year-old gentleman. He is in bed, no distress. HEENT: Mucosa is pink and moist. Anicteric. Acyanotic. Neck: Supple. Chest: Air entry was bilaterally reduced. There is still some diffuse wheezing and crackles in both lung simons. Cardiovascular: Regular rate and rhythm. No murmurs, no rubs, no gallops. Abdomen: Soft, nontender. Bowel sounds present. Extremities: No pedal edema. NUCLEAR UNIT OPERATOR: Patient is awake, alert, and oriented. LABORATORY DATA: WBC is 10.60, hemoglobin is 11.9, platelet count of 230,000. Chemistry is also reviewed. Bicarb is 22, anion gap is 14. Normal renal studies. Iron studies are consistent with a saturation of 7%, which would be consistent with iron deficiency. ASSESSMENT: 1. Mild diabetic ketoacidosis on presentation, resolved. 2. Diabetes mellitus, insulin dependent, with hyperglycemia on presentation and A1c of 12.4. Patient is back on home regimen. We will continue to titrate. 3. Bilateral lower lobe infiltrates, concerning for pneumonia. Patient is currently on intravenous antibiotics pending sputum cultures. 4. Microcytic anemia, secondary to iron deficiency. Noted. 5. Medication noncompliance. So, in general, Mr. Elizabeth is doing fairly okay. Gap is closed. Bicarb is normalized. Glucose is getting better. Patient is on insulin regimen. We will continue to titrate. We are pending the sputum culture to guide us with narrowing the antibiotic therapy. cc: Gui Crabtree MD
[2019-04-21] MEDS: LANTUS INSULIN SUBQ SCH (21:32)
[2019-04-22] MEDS: DUONEB (A & A) INH SCH ×3 (03:51→11:22)
[2019-04-22] MEDS: HUMALOG SUBQ SCH ×4 (06:44→12:17)
[2019-04-22] MEDS: PRILOSEC PO SCH (06:44)
[2019-04-22] MEDS: SOLU-MEDROL IV SCH ×2 (06:44→12:17)
[2019-04-22] MEDS: NEURONTIN PO SCH (08:59)
[2019-04-22] MEDS: LOVENOX SUBQ SCH (08:59)
[2019-04-22] MEDS: ZITHROMAX PO SCH (08:59)
--- NOTE | 2019-04-22 09:03 | Diag Imaging Result Doc PS360 ---
CHEST-2 VIEWS - 04/22/2019 INDICATION: hypoxia COMPARISON: 04/20/2019 FINDINGS: There are ill-defined reticulonodular infiltrates in both lower lobes. Heart size is top normal. No pneumothorax or pleural effusion. IMPRESSION: Bilateral lower lobe pneumonia. Little change from prior. Electronically signed by Tirso Gamez 04/22/2019 9:01 AM
[2019-04-22 12:05] VITALS: BP 124/73
[2019-04-22] MEDS ORDERED: LANTUS INSULIN SUBQ SCH (21:00)
--- NOTE | 2019-04-23 11:32 | DISCHARGE SUMMARY ---
ADMISSION DATE: 04/20/2019 DISCHARGE DATE: 04/22/2019 DISPOSITION: Home. FOLLOWUP: 1. PCP 2. Dr. Cross in [place], roller mill tender. CONSULTATION DURING THIS ADMISSION: None. IMAGING STUDIES: A chest x-ray did show bilateral bibasilar infiltrates concerning for pneumonia. A repeat chest x-ray showed little change. ASSESSMENT AT THE TIME OF ADMISSION: 1. Bibasilar pneumonia. 2. Diabetic ketoacidosis. 3. History of interstitial lung disease. 4. Asthma. DIAGNOSES AT THE TIME OF DISCHARGE: 1. Mild diabetic ketoacidosis on presentation. 2. Diabetes mellitus, insulin dependent, with presenting A1c of 12.4. 3. Bilateral lower lobe infiltrate concerning for pneumonia. 4. History of interstitial lung disease. The patient follows up with him with Dr. Cross in [place]. He has even had a lung biopsy. He has had multiple lung infections in the past. 5. Microcytic anemia secondary to iron deficiency. 6. History of asthma and rao allergic sinusitis. DISCHARGE MEDICATIONS: 1. Gabapentin 300 mg b.i.d. 2. Albuterol inhalers. 3. Insulin NovoLog 10 units subcu as ordered. 4. Losartan 25 mg daily. 5. Montelukast 10 mg p.o. at bedtime. 6. Pantoprazole 40 mg p.o. daily. 7. Aspirin 81 mg p.o. daily. 8. Terbinafine 250 p.o. daily. 9. Spiriva inhaler. 10. Augmentin 875 p.o. b.i.d. 11. [place]. 12. Azithromycin 500 p.o. daily. 13. Insulin glargine 40 units subcu q.p.m. PRESENTING COMPLAINT: Shortness of breath, generalized body aches. HISTORY OF PRESENTING COMPLAINT: Mr. Elizabeth is a 39-year-old gentleman who is known to have interstitial lung disease, asthma, chronic lung disease, who has been under the care of Dr. Cross, a roller mill tender in [place], came to the emergency department because of shortness of breath and generalized weakness. The patient was found to be in respiratory distress, was subsequently admitted for further medical care. HOSPITAL COURSE: Mr. Elizabeth was admitted to the [facility] because he was found to be in mild diabetic ketoacidosis. The DKA protocol was initiated. He responded pretty well to the management. Overnight, his gap closed, and his bicarb got normalized, so he was transitioned to his subcu regimen. He was also found to have bilateral lower lobes infiltrates concerning for pneumonia. He was started on broad-spectrum IV antibiotics. Throughout the hospital course, he show consistent improvement. Today, he feels a lot better. Cough has significantly improved and no expectoration. We think he is fairly stable for discharge and to continue with outpatient management with his roller mill tender and his primary care doctor. All the discharge instructions have been discussed with him and the who was at the bedside at the time of the encounter. Both voiced understanding. At the time of this encounter, his vitals showed blood pressure was 129/80, pulse of 81, respirations 16, temperature 97.4 degrees. The patient is saturating 98%. Physical exam is unremarkable except for continued rhonchi and crackles in the posterior lung simons; however, Mr. Elizabeth is clinically stable. Discharge time is 35 minutes. cc: MD Dr. Abhishek Schneider Dr.
== END 2019-04-22 12:55 | disposition home or self-care (01) | DRG 637 ==
LOC: ED 09:36 → 2N 09:37
PROVIDERS: ATTEND Internal Medicine

== ENCOUNTER 2019-08-28 01:40 | Inpatient (IN) ==
[2019-08-28] MEDS ORDERED: ROCEPHIN 1 GM in NS 50 ML IV ONE (02:21)
[2019-08-28] MEDS ORDERED: ZITHROMAX PO ONE (02:21)
[2019-08-28] MEDS ORDERED: TORADOL IV ONE (02:21)
--- NOTE | 2019-08-28 02:28 | PROVIDER DOCUMENTATION ---
HPI-General Adult - General Chief Complaint: Chest Pain Stated Complaint: CHEST PAIN Time Seen by Provider: 08/28/19 01:52 Source: patient, family Allergies/Adverse Reactions: Patient Allergies Allergy/AdvReac Type Severity Reaction Status Date / Time orange flavor Allergy Severe SWELLING Verified 11/11/17 08:24 Sulfa (Sulfonamide Allergy Intermediate HIVES Verified 11/11/17 08:24 Antibiotics) [Sulfa(Sulfonamide Antibiotics)] orange juice [[place] Juice] AdvReac Severe SWELLING Verified 11/11/17 08:24 Oranges Allergy Severe ANAPHYLAXIS Uncoded 11/11/17 08:24 Home Medications: Home Medication List Medication Instructions Recorded Confirmed Last Taken Type Gabapentin [Neurontin] 300 mg PO BID 01/20/16 04/20/19 02/19/18 08:00 History Albuterol Sulfate [Proair Hfa] 2 puff INH Q4H PRN 11/11/17 04/20/19 02/19/18 17:00 History Albuterol [Albuterol Neb] 2 puff INH Q4H PRN 11/11/17 04/20/19 02/19/18 17:00 History Cetirizine [Zyrtec] 10 mg PO DAILY 11/11/17 04/20/19 02/19/18 08:00 History Docusate Sodium [Dulcoease] 100 mg PO BID 11/11/17 04/20/19 02/19/18 08:00 History Fluticasone 50 Mcg Nasal [place] 2 spray SHANT BID 11/11/17 04/20/19 02/19/18 08:00 History [Flonase] Insulin Aspart [Novolog Flexpen] 10 units SUBQ ORDERED 11/11/17 04/20/19 02/19/18 12:25 History Losartan [Cozaar] 25 mg PO DAILY 11/11/17 04/20/19 02/19/18 08:00 History Mometasone/Formoterol [Dulera 100 2 puff INH BID 11/11/17 04/20/19 02/19/18 08:00 History Mcg/5 Mcg Inhaler] Montelukast [Singulair] 10 mg PO QHS 11/11/17 04/20/19 02/19/18 22:00 History Multivit-Minerals/FA/Lycopene [One 1 tab PO DAILY 11/11/17 04/20/19 02/19/18 08:00 History Daily For Men Tablet] Pantoprazole [Protonix] 40 mg PO DAILY 11/11/17 04/20/19 02/19/18 08:00 History Prednisone 20 mg PO DAILY 11/11/17 04/20/19 02/19/18 08:00 History Aspirin [Aspirin EC] 81 mg PO DAILY 04/20/19 04/20/19 Unknown History Terbinafine HCl 250 mg PO DAILY 04/20/19 04/20/19 Unknown History Tiotropium [place] Inhaler 2 puff INHALATION PRN PRN 04/20/19 04/20/19 Unknown History [Spiriva] Amoxicillin/Potassium Clav 1 ea PO BID #14 tab 04/22/19 Unknown Rx [Augmentin 875-125 Tablet] Azithromycin [Zithromax] 500 mg PO DAILY #5 tab 04/22/19 Unknown Rx Hydrocodone/APAP 7.5 mg/325 mg 1 ea PO Q6H PRN PRN #20 tab 04/22/19 Unknown Rx [[place]-7.5] Insulin Glargine [Lantus Insulin] 40 unit SUBQ QPM #1 unit 04/22/19 Unknown Rx - History of Present Illness -Gen Adult Nature of Presenting Problems: PT PRESENT FOR EVALUATION MOD SEVERE CHEST TIGHTNESS OR PAIN. ONSE 30 MIN SLURRY MAN. SIMILAR TO PRIOR EPISODES OF PNEUMONIA. FREQUENT PNEUMONIAS, HX ASTHMA, HAS UNDERLYING LUNG DISEASE, ? FIBROSIS. SEE SPINNER HAND DR SIBLEY AND TORIBIO BERMAN AT [facility] IN [facility]. Review of Systems - Adult - REVIEW OF SYSTEMS - ADULT Constitutional: reports: see asmita COOPER Eyes: reports: no symptoms reported Ears, Nose, Mouth & Throat: reports: no symptoms reported Cardiovascular: reports: no symptoms reported, chest pain Respiratory: reports: no symptoms reported, shortness of breath Gastrointestinal: reports: no symptoms reported Genitourinary: reports: no symptoms reported Musculoskeletal: reports: no symptoms reported Integumentary: reports: no symptoms reported Neurological: reports: no symptoms reported Psychiatric: reports: no symptoms reported Endocrine: reports: no symptoms reported Hematologic/Lymphatic: reports: no symptoms reported Allergic/Immunologic: reports: no symptoms reported All Other Systems: Reviewed and Negative Past History - Adult - PAST MEDICAL HISTORY-ADULT Review of Records: reports: Nursing Assessment Review, Medications Reviewed, Social history reviewed & non-contributory. Major Childhood Illnesses: reports: denies history Cardiovascular: reports: CHF, HTN Respiratory: reports: asthma, pneumonia, other (interstitial lung disease) Gastrointestinal: reports: denies history Obstetrical/Gynecological: reports: denies history Genitourinary: reports: denies history Musculoskeletal: reports: denies history Neurological: reports: denies history Psychiatric: reports: denies history Endocrine/Immune: reports: Diabetes Other Conditions: reports: denies history - PRIOR SURGERIES/PROCEDURES Surgical/Procedure History: reports: reviewed, not pertinent, other (sinus) - IMMUNIZATION STATUS Childhood Immunizations: See Nurse Assessment Flu Vaccine: See Nurse Assessment - FAMILY HISTORY Family History: reviewed, not pertinent Physical Exam-General - PHYSICAL EXAM-ADULT Initial Vital Signs Reviewed: Yes - CONSTITUTIONAL General Appearance: alert, moderate distress - EYES Eyes: PERRL/EOMI, pink conjunctivae - HEAD, EARS, NOSE, MOUTH & THROAT HENMT: normocephalic/atraumatic, moist mucous membranes - NECK Neck: non-tender, full range of motion, supple - RESPIRATORY Respiratory: rales, wheezing. negative: stridor - CARDIOVASCULAR Cardiovascular: regular rate, rhythm, no edema, no JVD, no murmur - GASTROINTESTINAL (ABDOMEN) Abdominal Exam: non tender, soft, no organomegaly - MUSCULOSKELETAL Extremity: normal range of motion, non-tender, normal inspection, swelling (TRACE IN ANKLES) - SKIN Integumentary: normal color, normal turgor, warm/dry - NEUROLOGIC Neurologic: director of player personnel II-XII nml as tested, grossly normal, no motor/sensory deficits - PSYCHIATRIC Psych/Mental Status: normal mood/affect, normal thought content, normal thought process, oriented x 3 Progress - PLAN OF CARE/RESULTS Progress/Plan/Lab Results: Vital Signs - 8 hr 08/28/19 01:42 Temperature 97.3 F L Pulse Rate 80 Respiratory Rate 18 Blood Pressure 141/86 O2 Sat by Pulse Oximetry 98 Orders Category Date Time Status Cardiac Monitoring DIRECTED Care 08/28/19 02:19 Ordered Saline Loc NOW Care 08/28/19 02:20 Ordered CHEST-2 VIEWS [RAD] Stat Exams 08/28/19 01:58 Ordered ABG [RESP] Stat Lab 08/28/19 02:20 Ordered BASIC METABOLIC PANEL [CHEM] Stat Lab 08/28/19 02:20 Ordered BLOOD CULTURE [BLDCUL] Stat Lab 08/28/19 02:20 Ordered CBC WITH ELECTRONIC DIFF [HEME] Stat Lab 08/28/19 02:[address]EN [address] Stat Lab 08/28/19 02:21 Uncollected LACTATE, PLASMA [CHEM] Stat Lab 08/28/19 02:21 Uncollected MAGNESIUM [CHEM] Stat Lab 08/28/19 02:21 Uncollected PRO B-NATRIURETIC PEPTIDE Stat Lab 08/28/19 02:21 Uncollected TROPONIN T HIGH SENSITIVITY Stat Lab 08/28/19 02:21 Uncollected Azithromycin [Zithromax] Med 08/28/19 02:21 Once 500 mg PO NOW ONE Ketorolac [Toradol] Med 08/28/19 02:21 Once 30 mg IV NOW ONE Rocephin 1 gm/Ns IV Now Med 08/28/19 02:21 Ordered CefTRIAXONE [Rocephin] 1 gm 0.9% Sodium Chloride Inj [Ns] 50 ml IV NOW CP/Palp <45 No Known Cardiac Hx Stat Oth 08/28/19 01:58 Ordered EKG [EKG] Stat Ther 08/28/19 01:58 Ordered Result Diagrams: 08/28/19 02:12 08/28/19 02:12 - REASSESSMENT Reassessment #2 Time Reassessed: 04:32 Status: improving (STILL FEELS MOD MALAISE AND CHEST PAINS. TROPONIN NOT ELEVATED, BS 414, SEE HOME LANTUS AND NOVALOG DOSAGES. NO ACIDOSIS.) - EKG 1 Time of EKG reading by physician:: 01:56 EKG Read and Signed by:: Sancho Wagoner EKG Interpretation (*Must complete 3 of following elements*): Abnormal Rate: 80 Rhythm: SINUS [place]: normal QRS: normal [place] Interval: normal ST Wave: non-specific ST changes - XRAY 1 XRAY Study: Chest Impression: Abnormal (MILD LEFT BASILAR INFILTRATE COMPARED TO Apr CXR.) - CONSULTS/PCP/HOSPITALIST Notification #1 *Consult/PCP/Hospitalist*: DR DICK Time Discussed: 04:36 Consult Disposition: Admit Departure - Departure Date of Disposition Decision: 08/28/19 Time of Disposition Decision: 04:34 DIAGNOSIS: Hyperglycemia due to type 2 diabetes mellitus Qualifiers: Diabetes mellitus senior living insulin use: with senior living use Qualified Code(s): E11.65 - Type 2 diabetes mellitus with hyperglycemia; Z79.4 - terminal carman (current) use of insulin Pneumonia Qualifiers: Laterality: left Lung location: lower lobe of lung Chest pain Qualifiers: Chest pain type: unspecified Qualified Code(s): R07.9 - Chest pain, unspecified Disposition: ADMITTED INPATIENT 09 Certified Medical Emergency: Emergent Condition: Stable Referrals and Follow-Ups: None,PCP [Primary Care Provider] - - Critical Care Note This patient required my direct & personal management of CC.: No Attestation - Physician/ KRISTINA Attestation The physician spent face to face time with patient:: Yes Advanced Practice Provider documentation review:: Supervising physician onsite and consulted in the evaluation and care of this patient. The physician did have a face to face encounter with the patient.
[2019-08-28] MEDS ORDERED: DUONEB (A & A) INH ONE (02:53)
[2019-08-28 02:59] LABS: BASO# 0.02 X1000 (0.0-0.2); BASO% 0.3 % (0.0-0.8); EOS# 0.04 X1000 (0.0-0.7); EOS% 0.5 % (0.0-10.0); HEMOGLOBIN 12.9 g/dL (14.0-18.0); IMM GRAN# 0.01 X1000 (0.0-0.04); IMM GRAN% 0.1 % (0.0-0.5); LYMPH# 2.44 X1000 (1.2-3.4); LYMPH% 30.7 % (20.5-51.1); MCH 22.6 PG (27-31); MCHC 31.5 g/dL (33-37); MCV 71.9 FL (81-99); MONO# 0.53 X1000 (0.11-0.59); MONO% 6.7 % (1.7-9.3); MPV 11.1 FL (7.4-10.4); NEUT% 61.7 % (42.2-75.2); PLT 269 X1000 (130-400); RDW 14.4 % (11.5-14.5); WBC 7.94 X1000 (4.8-10.8)
[2019-08-28 03:17] LABS: BE -0.8 mmoll (-3.0-3.0); BLOOD TYPE ARTERIAL; HCO3-(ACT) 24.2 mmoll (20.0-26.0); METHB 1.3 % (0.0-1.5); O2(CT) 18.5 mL/dL (15.0-23.0); O2HB 95.1 % (95.0-99.0); PCO2(98.6) 41 mmHg (35-45); PO2(98.6) 79 mmHg (60-100); SAMPLE BLOOD; SAO2 98.2 % (95.0-100.0); THB 13.8 g/dL (11.5-17.4); pH(98.6) 7.38 (7.35-7.45)
[2019-08-28 03:18] LABS: ALLEN TEST NO; MODALITY ROOM AIR
[2019-08-28 03:39] LABS: ESTIMATED GFR > 60
[2019-08-28 03:45] LABS: INFLUENZA A NEGATIVE (NEGATIVE); INFLUENZA B NEGATIVE (NEGATIVE)
[2019-08-28 03:53] LABS: AGAP 17; BUN 12 mg/dL (8-22); CALCIUM 9.3 mg/dL (8.8-10.2); CHLORIDE 100 mmol/L (98-107); COSMO 297; CREATININE 0.7 mg/dL (0.7-1.2); POTASSIUM 4.1 mmol/L (3.5-5.1); SODIUM 140 mmol/L (136-145); TCO2 23 mmol/L (25-35)
[2019-08-28 03:55] LABS: GLUCOSE 414 mg/dL (70-104)
--- NOTE | 2019-08-28 04:00 | EKG Report ---
Test Performed on : 08/28/2019 01:54:54 AM Test Reason : cp Blood Pressure : / mmHG Vent. Rate : 080 BPM Atrial Rate : 080 BPM P-R Int : 158 ms QRS Dur : 090 ms QT Int : 350 ms P-R-T Axes : 060 053 019 degrees QTc Int : 403 ms Normal sinus rhythm. Possible Left atrial enlargement Nonspecific ST and T wave abnormality Abnormal ECG When compared with ECG of 20-APR-2019 11:05, Nonspecific T wave abnormality, improved in Lateral leads Unconfirmed Result
[2019-08-28] MEDS ORDERED: HUMULIN R SUBQ ONE (04:14)
[2019-08-28] MEDS ORDERED: NS 1,000 ML IV ONE ×2 (04:16→06:37)
[2019-08-28] MEDS ORDERED: HUMULIN R (PARKWAY) ONE (04:28)
[2019-08-28] MEDS ORDERED: MORPHINE IV ONE (04:30)
[2019-08-28] MEDS ORDERED: ZOFRAN IV ONE (04:30)
[2019-08-28] MEDS ORDERED: ASPIRIN EC ONE (05:39)
[2019-08-28] MEDS ORDERED: ASPIRIN PO ONE (05:43)
--- NOTE | 2019-08-28 05:43 | Diag Imaging Result Doc PS360 ---
EXAM: CHEST-2 VIEWS HISTORY: cp TECHNIQUE: Two views COMPARISON: 04/22/2019 FINDINGS: The lungs are well expanded. The heart is not enlarged. The vessels are not distended. There are small left lower lobe infiltrates. A portion of the markings in the left base may be due to scarring. No pleural effusions. IMPRESSION: Small left lower lobe infiltrates Electronically signed by Will Hawley 08/28/2019 5:41 AM
--- NOTE | 2019-08-28 05:51 | EKG Report ---
Test Performed on : 08/28/2019 05:38:12 AM Test Reason : CP Blood Pressure : / mmHG Vent. Rate : 083 BPM Atrial Rate : 083 BPM P-R Int : 162 ms QRS Dur : 096 ms QT Int : 374 ms P-R-T Axes : 061 048 029 degrees QTc Int : 439 ms Normal sinus rhythm. ST elevation, consider inferior injury or acute infarct ACUTE [place] / STEMI Abnormal ECG When compared with ECG of 28-AUG-2019 01:54, (Unconfirmed) No significant change was found Unconfirmed Result
--- NOTE | 2019-08-28 05:53 | EKG Report ---
Test Performed on : 08/28/2019 05:41:50 AM Test Reason : cp Blood Pressure : / mmHG Vent. Rate : 084 BPM Atrial Rate : 084 BPM P-R Int : 152 ms QRS Dur : 096 ms QT Int : 356 ms P-R-T Axes : 073 051 027 degrees QTc Int : 420 ms Normal sinus rhythm. ST elevation, consider early repolarization, pericarditis, or injury Nonspecific ST and T wave abnormality Abnormal ECG When compared with ECG of 28-AUG-2019 05:39, (Unconfirmed) No significant change was found Unconfirmed Result
--- NOTE | 2019-08-28 05:53 | EKG Report ---
Test Performed on : 08/28/2019 05:39:25 AM Test Reason : cp Blood Pressure : / mmHG Vent. Rate : 080 BPM Atrial Rate : 080 BPM P-R Int : 158 ms QRS Dur : 096 ms QT Int : 366 ms P-R-T Axes : 071 052 031 degrees QTc Int : 422 ms Normal sinus rhythm. ST elevation, consider inferior injury or acute infarct ACUTE [place] / STEMI Abnormal ECG When compared with ECG of 28-AUG-2019 05:38, (Unconfirmed) No significant change was found Unconfirmed Result
[2019-08-28] MEDS ORDERED: TYLENOL PO PRN (06:37)
[2019-08-28] MEDS ORDERED: MORPHINE IV PRN (06:37)
[2019-08-28] MEDS ORDERED: ZOFRAN IV PRN (06:37)
[2019-08-28] MEDS: HUMULIN R (PARKWAY) SUBQ PRN ×2 (07:29→11:10)
[2019-08-28] MEDS: DUONEB (A & A) INH SCH ×5 (08:52→23:36)
[2019-08-28] MEDS ORDERED: COZAAR PO SCH (10:00)
[2019-08-28] MEDS ORDERED: DULERA 100 MCG/5 MCG INHALER INH SCH (10:00)
[2019-08-28] MEDS ORDERED: LAMISIL PO SCH (10:00)
[2019-08-28] MEDS: PROTONIX PO SCH (10:32)
[2019-08-28] MEDS: NEURONTIN PO SCH ×2 (10:33→20:31)
[2019-08-28] MEDS: LANTUS INSULIN SUBQ SCH ×2 (10:34→20:31)
--- NOTE | 2019-08-28 12:12 | EKG Report ---
Test Performed on : 08/28/2019 11:34:37 AM Test Reason : elevated trop, CP Blood Pressure : / mmHG Vent. Rate : 085 BPM Atrial Rate : 085 BPM P-R Int : 156 ms QRS Dur : 098 ms QT Int : 354 ms P-R-T Axes : 068 024 003 degrees QTc Int : 421 ms Normal sinus rhythm. Possible Inferior infarct , age undetermined Abnormal ECG When compared with ECG of 28-AUG-2019 05:41, (Unconfirmed) No significant change was found Unconfirmed Result
--- NOTE | 2019-08-28 13:24 | EKG Report ---
Test Performed on : 08/28/2019 1:17:25 PM Test Reason : CP, Abn Trop Blood Pressure : / mmHG Vent. Rate : 084 BPM Atrial Rate : 084 BPM P-R Int : 158 ms QRS Dur : 100 ms QT Int : 368 ms P-R-T Axes : 063 021 016 degrees QTc Int : 434 ms Normal sinus rhythm. Nonspecific ST and T wave abnormality Abnormal ECG When compared with ECG of 28-AUG-2019 11:34, (Unconfirmed) No significant change was found Confirmed by Evelio PALACIOS, Braydon Fu ([id number]) on 08/28/2019 6:56:22 PM
[2019-08-28] MEDS ORDERED: ROCEPHIN 1 GM in NS 50 ML IV SCH (13:30)
--- NOTE | 2019-08-28 14:20 | HISTORY AND PHYSICAL ---
CHIEF COMPLAINT: Chest pain. HISTORY OF PRESENT ILLNESS: This is a 39-year-old gentleman with a history of reported congestive heart failure, hypertension, diabetes type 2 and interstitial lung disease. He presents to the emergency room complaining of chest pain. He describes this as a chest tightness. It is across his chest wall. He does state that at times has a sharp component and at that time it will radiate to his left shoulder. He denied any accompanying symptoms or any alleviating or exacerbating symptoms. He does state that he has had pneumonia in the past and this feels like it has recurred. PAST MEDICAL HISTORY: 1. Diabetes mellitus type 2. 2. Interstitial lung disease. 3. Asthma. 4. Reported congestive heart failure. 5. Hypertension. PAST SURGICAL HISTORY: Sinus surgery. SOCIAL HISTORY: He denies alcohol, tobacco, or illicit drug use. He is , lives with his . ALLERGIES: Sulfa, orange juice which causes swelling and hives. HOME MEDICATIONS: A list will be obtained by the nursing staff. Once verified, we will review and restart as appropriate. FAMILY HISTORY: Positive for hypertension, diabetes, coronary artery disease and CHF. REVIEW OF SYSTEMS: Discussed with patient with pertinent positives stated in the HPI. He denied any syncope, any dizziness, any palpitations, a cough, any fevers or chills, any PND, orthopnea, any nausea, vomiting, diarrhea, constipation, black or bloody vomitus or stools, any hematuria dysuria, frequency, urgency. PHYSICAL EXAMINATION: GENERAL: This is a 39-year-old gentleman who is sitting up on the stretcher in the emergency room in no distress. VITAL SIGNS: Blood pressure is 132/74 with a heart rate of 78, respirations are 16, temperature is 97.7 degrees oral with O2 saturations that are 98 to 100 percent on 2 L nasal cannula. HEENT: Pupils are equal, round, react to light. EOMs are intact. Sclerae are anicteric. Head is normocephalic, atraumatic. Mucous membranes are moist. NECK: Supple with trachea midline. CARDIOVASCULAR: Regular rate and rhythm. S1 and S2 appreciated. No murmur. He has no lower extremity edema. Calves are nontender bilateral with peripheral pulses palpable x4 extremities. PULMONARY: Breath sounds with scattered expiratory wheezes throughout. Chest rises and falls symmetric respiration. Chest wall is nontender to palpation. GASTROINTESTINAL: Abdomen soft, nontender, nondistended with bowel sounds in all 4 quadrants. GENITOURINARY: No CVA or suprapubic tenderness. NEUROLOGIC: He is alert and oriented x3. SKIN: Warm and dry. LABS: WBC is 7.9 with hemoglobin 12.9, hematocrit 41, and platelets of 269,000. Sodium is 140, potassium 4.1, CO2 23, BUN 12, creatinine 0.7 with a glucose of 414. Troponins are 8 at 2 a.m., 100 at 4 a.m. Influenza A and B are negative. Chest x-ray revealed small left lower lobe infiltrates. Initial EKG at 2 a.m. revealed normal sinus rhythm with nonspecific ST-T wave abnormalities at 88 beats per minute. Repeat EKG at 5:45 revealed normal sinus rhythm at a rate of [address] elevation throughout the EKG. EKG at 5:41 a.m. revealed sinus rhythm at a rate of [address] elevation throughout could be early repolarization, pericarditis or injury. Blood cultures x2 are pending. ASSESSMENT AND PLAN: 1. Chest pain. 2. Elevated troponin. 3. Interstitial lung disease. 4. Pericarditis with EKG changes consistent with pericarditis. 5. History of hypertension. PLAN: The patient will be admitted and transferred to [facility] to PVC or ICU. We will consult Cardiology. We will recheck a troponin now, will check a CRP, get echocardiogram. We will continue with telemetry, breathing treatments of duo nebs q.4 hours, will identify his home medications continue these as appropriate. Pattern blood glucose with sliding scale insulin, antibiotic coverage of Rocephin and azithromycin as chest x-ray was read as left lower lobe infiltrates. He will be placed on diabetic diet. Plan was discussed with Dr. Mckeon and patient was evaluated. Further treatments pending hospital course. Dictated by MORENITA Farrell for Kiran Mckeon MD cc: MORENITA Farrell MD
[2019-08-28] MEDS ORDERED: COLCRYS PO ONE ×2 (14:27)
[2019-08-28] MEDS: TORADOL IV SCH ×2 (14:31→20:31)
--- NOTE | 2019-08-28 15:31 | ECHO REPORT ---
ORDER DATE: 08/28/2019 INTERPRETING PHYSICIAN: Dr. Narendra Fitzgerald. ECHOCARDIOGRAPHIC MEASUREMENTS: 1. Interventricular septum: 1.1 cm. 2. Left ventricular posterior wall: 1.1 cm. 3. Diastolic diameter: 5.1 cm. 4. Left atrium index: 24.46 cm. SUMMARY OF THE 2-DIMENSIONAL IMAGIN. Aortic valve leaflets were trileaflet. 2. Pulmonic valve was normal. 3. Mitral valve was normal. 4. Tricuspid valve was normal. 5. Optison was used to assess left ventricular systolic function. 6. Normal left ventricular cavity size. 7. Estimated ejection fraction of 50 to 55%. There was mild basal hypokinesis noted in the base of the inferior wall and in the base of the lateral wall. There is grade 2 diastolic dysfunction. 8. Peak velocity across the aortic valve less than 2 meters per second. 9. There is no aortic stenosis or regurgitation. 10. There is mild mitral regurgitation. 11. Mild tricuspid regurgitation. 12. Peak velocity across the tricuspid valve less than 2 meters per second. 13. There is no pericardial effusion or obvious intracardiac mass or thrombus seen. cc: MD Yoana Valencia CRNP MTDD
--- NOTE | 2019-08-28 15:35 | CARDIOLOGY CONSULTATION ---
DATE: 08/28/2019 REASON FOR CONSULTATION: Cardiology was consulted for chest pain, abnormal cardiac enzymes, abnormal troponin. HISTORY OF PRESENT ILLNESS: Mr. Ken Elizabeth is a 39-year-old, Afro-[place] gentleman comes with complaints of having sharp episodes of chest discomfort. He describes the symptoms as knife-like recurrent episodes of chest discomfort, not associated with any diaphoresis. His symptoms worsened came to the emergency room, was admitted and [facility]. His electrocardiogram revealed normal sinus rhythm, nonspecific ST-T abnormalities suggestive of pericarditis. His cardiac enzymes were abnormal intensity. Troponin when he presented on 08/28 was 8 subsequently increased from 100 to 607. Patient has known interstitial lung disease, has asthma and has had recurrent episodes of pneumonia. He is followed by Dr. Cross in [place] who is his filter press pumper. He has had a lung biopsy and he states that his diagnosis is interstitial lung disease. The other type he does not remember. He was admitted on 04/20/2019 with a bibasilar pneumonia. At that time he also was diagnosed to have diagnosed to have diabetic ketoacidosis. Prior to this day he has not had any exertional component of chest pain. He has been taking his medications regularly. There is no history of orthopnea, paroxysmal nocturnal dyspnea. He does not complain of having adding any fevers or chills. PAST MEDICAL HISTORY: 1. Interstitial lung disease. 2. History of recurrent pneumonia. 3. Asthma. 4. Diabetes. ALLERGIES: He is allergic to sulfonamides and orange juice. HOME MEDICATIONS: 1. Insulin Lantus as directed. 2. Spiriva inhalers. 3. Terbinafine. 4. Enteric-coated aspirin. 5. Dulera. 6. Prednisone 30 mg a day. 7. Protonix 40 mg a day. 8. Montelukast 10 mg a day. 9. Losartan 25. 10. Regular insulin as directed. 11. Gabapentin 300 mg p.o. b.i.d. 12. Albuterol inhalers. SOCIAL HISTORY: He does not smoke. Does not drink. REVIEW OF SYSTEMS: Review of system was done. GI system: There is no history of nausea, vomiting, diarrhea. There is no history of hematemesis or melena. Central nervous system: No focal weakness to suggest a CVA, transient ischemic attack. System: There is no dysuria or hematuria. PHYSICAL EXAMINATION: Vital Signs: Blood pressure was 123/92. Neck: Jugular venous pressure was normal. CV: First and second heart sounds were heard. There was no S3 gallop or rubs. Respiratory: Bilateral expiratory wheeze. Abdomen: Soft. There was no guarding or rigidity. Bowel sounds were heard. Central nervous system: Alert and was moving all 4 extremities. Extremities: Revealed no pedal edema. HEENT: Atraumatic, normocephalic. Pupils were equal and reacting to light. ASSESSMENT AND PLAN: 1. Mr. Ken Elizabeth is a 39-year-old -[place] gentleman with history of asthma, interstitial fibrosis, diabetes, hypertension, has had recurrent pneumonia in the past and also has had pericarditis diagnosed in the last few years. He comes in with complaints of having sharp episodes of chest pain. He has abnormal to a high sensitivity troponin going up to 600. His electrocardiogram revealed normal sinus rhythm with ST T pattern suggestive of pericarditis. He had an echocardiogram done which revealed ejection fraction of 50 to 55 percent with some hypokinesis at the base of the septum and the base of the lateral wall which was noted. There was no significant valvular abnormality. Please see detailed echocardiogram report. 2. Given his lung pathology and ongoing chronic lung issues we will consult Dr. Boyer. 3. We will get a CT scan of his chest with contrast as well. 4. To start with I will also get a resting Cardiolite stress test in the morning and given the diagnosis of Myopericarditis and pericarditis. I will start him on colchicine. However he has the milieu of having coronary artery disease, as well given his diabetes and significantly elevated troponin T. We will get a resting myocardial perfusion scan to make sure there is no obvious significant defect noted. Depending on the studies we will plan for the hospital course. 5. Hypertension continue with his medications. 6. Diabetes continue with his insulin. 7. As far as his interstitial fibrosis and asthma is concerned he is on steroids and multiple inhalers. I have not made any changes. Thank you for the consult. We will follow hospital course. cc: Narendra Fitzgerald MD [facility]
[2019-08-28] MEDS: HUMULIN R SUBQ SCH ×2 (17:19→20:32)
--- NOTE | 2019-08-28 18:28 | HISTORY AND PHYSICAL ---
ADDENDUM: The patient presented to the hospital with increased cough, congestion, shortness of breath. He does have interstitial lung disease for which he is on chronic steroids. He is noted to have an elevated ST elevation consistent with pericarditis. His 1st troponin was negative. Second was elevated at 100 and the next one again was elevated. We are going to admit him to the hospital. Ask Cardiology for evaluation and treatment and we will follow. cc: Kiran Mckeon MD
[2019-08-28] MEDS: COLACE PO SCH (20:31)
[2019-08-28] MEDS: COLCRYS PO SCH (20:31)
[2019-08-28] MEDS ORDERED: FLONASE NAS SCH (21:00)
[2019-08-28] MEDS ORDERED: SINGULAIR PO SCH (21:00)
[2019-08-28] MEDS ORDERED: COLACE PO SCH (21:00)
--- NOTE | 2019-08-28 21:25 | Diag Imaging Result Doc PS360 ---
EXAM: CT ANGIOGRAM THORAX HISTORY: CP, Interstistial lung disease TECHNIQUE: CT chest with intravenous contrast. Pulmonary two protocol with MIP images. COMPARISON: None. FINDINGS: Trace pleural fluid. Normal opacification of the pulmonary arteries and their branches. No cardiomegaly. No aortic aneurysm or dissection. Small mediastinal and hilar nodes. Progressive nodular infiltrates. There is bronchiectasis in the left lower lobe. IMPRESSION: Progressive nodular interstitial lung disease. This exam was performed using automated exposure control, adjustment of mA or kV according to patient size, and/or use of iterative reconstruction technique. Electronically signed by Will Hawley 08/28/2019 9:23 PM
[2019-08-28] MEDS: FLONASE NAS SCH (23:27)
[2019-08-28] MEDS: MAXIPIME 2 GM/NS 2 GM/100 ML IVPB IV SCH (23:28)
[2019-08-28] MEDS: DULERA 100 MCG/5 MCG INHALER INH SCH (23:36)
[2019-08-28] MEDS ORDERED: VANCOMYCIN IV PER PHARMACY MISC SCH (23:45)
[2019-08-29] MEDS: VANCOMYCIN 2,000 MG in NS 500 ML IV SCH ×2 (01:00→16:18)
--- NOTE | 2019-08-29 01:58 | PULMONOLOGY CONSULTATION ---
DATE: 08/28/2019 REQUESTING PHYSICIAN: Dr. Fitzgerald. REASON FOR CONSULTATION: Interstitial lung disease. HISTORY OF PRESENT ILLNESS: Mr. Elizabeth is a 39-year-old male with history of poorly controlled diabetes mellitus and chronic lung disease. The patient's family reports since childhood he has had purulent nasal drainage and recurrent infections. The patient developed diabetes mellitus in 2010 and was admitted to this hospital in 2011 with bibasilar infiltrates on CT scan. Subsequent workup at that time he was HIV negative and had normal immunoglobulin classes. The patient had a CT scan of the thorax in 2016 which revealed bilateral bibasilar nodular infiltrates with consolidation. He reports he underwent bronchoscopy and subsequent thoracoscopy with lung biopsy at [facility] on 03/22/2017 and told he had some fibrosis. He reports he has a cough productive of yellow-green sputum every day up to 2 to 3 cups. He does not recall being told of any particular bacteria, but in April he grew Pseudomonas aeruginosa. The patient presented to the emergency room with increased cough, increased chest tightness and ST-segment elevation. He is being evaluated by Cardiology. PAST MEDICAL HISTORY: 1. Chronic and recurrent lung infections with abnormal CT scan as per above. 2. Poorly controlled diabetes mellitus. The patient has not had a hemoglobin A1c less than 10 in the last 4 years. 3. Asthma. SOCIAL HISTORY: The patient is a never smoker. No alcohol use. FAMILY HISTORY: Noncontributory to current presentation. REVIEW OF SYSTEMS: Notable for cough, increased sputum production, chest pain which brought him to the emergency room. PHYSICAL EXAMINATION: General: Reveals a well-developed, well-nourished black male resting comfortably and in no distress. Vital Signs: Blood pressure 109/79, heart rate 77, respiratory rate 14, oxygen saturation 100% on 2 L per nasal cannula. HEENT: Pupils are equal and reactive. Oropharynx is clear. Neck: Supple. Chest: Reveals rhonchi bilaterally without wheezing or tactile fremitus. Cardiac: S1, S2. Abdomen: Soft. Extremities: Without edema. LABORATORIES: CT scan of the thorax is reviewed and compared to 2017. The patient has more infiltrates in the upper lobes than on prior CT scan. He has developed some bronchiectasis in the left lower lobe which was not as evident in 2017. He had more areas of consolidation in the lower lobe in 2017 then now. Troponin high sensitivity began at 8. It went to 100 and now is 607. IMPRESSION: A 39-year-old with: 1. Exacerbation of bronchiectasis with multinodular infiltrates. 2. Poorly controlled diabetes mellitus. 3. Atypical chest pain, pericarditis suspected but he has had poorly controlled diabetes mellitus for several years. RECOMMENDATIONS: 1. The patient was strongly encouraged to improve his glucose control. If he cannot control his sugars, then he will not be able to control his infections in his chest. 2. Initiate antibiotics for Pseudomonas. 3. Collect sputum for C and S. 4. I will call [facility] tomorrow to see if I can get a copy of his surgical pathology. 5. Agree with plans for Lexiscan as outlined by Cardiology. cc: Morris Boyer MD
[2019-08-29] MEDS: TORADOL IV SCH ×2 (03:07→09:23)
[2019-08-29] MEDS: DUONEB (A & A) INH SCH ×6 (03:51→23:26)
[2019-08-29 05:55] LABS: BASO# 0.01 X1000 (0.0-0.2); BASO% 0.2 % (0.0-0.8); EOS# 0.09 X1000 (0.0-0.7); EOS% 1.7 % (0.0-10.0); HEMATOCRIT 36.5 % (42.0-52.0); HEMOGLOBIN 11.3 g/dL (14.0-18.0); IMM GRAN# 0.02 X1000 (0.0-0.04); IMM GRAN% 0.4 % (0.0-0.5); LYMPH# 2.01 X1000 (1.2-3.4); MCH 23.1 PG (27-31); MCV 74.6 FL (81-99); MONO# 0.27 X1000 (0.11-0.59); MONO% 5.2 % (1.7-9.3); MPV 10.1 FL (7.4-10.4); NEUT# 2.76 X1000 (1.4-6.5); NEUT% 53.5 % (42.2-75.2); PLT 215 X1000 (130-400); RBC 4.89 XMIL (4.7-6.1); RDW 14.6 % (11.5-14.5); WBC 5.16 X1000 (4.8-10.8)
[2019-08-29 06:02] LABS: HEMOGLOBIN A1C 11.8 % (4.8-6.0)
[2019-08-29 06:22] LABS: AGAP 9; BUN 11 mg/dL (8-22); CALCIUM 7.9 mg/dL (8.8-10.2); CHLORIDE 104 mmol/L (98-107); COSMO 280; CREATININE 0.7 mg/dL (0.7-1.2); ESTIMATED GFR > 60; GLUCOSE 196 mg/dL (70-104); POTASSIUM 3.4 mmol/L (3.5-5.1); SODIUM 138 mmol/L (136-145); TCO2 25 mmol/L (25-35)
[2019-08-29] MEDS: HUMULIN R SUBQ SCH ×4 (06:45→21:51)
[2019-08-29] MEDS: PROTONIX PO SCH (06:46)
[2019-08-29 07:07] LABS: EOS 1 % (1-10); LYMPHS 34 % (21-51); MONO 6 % (1-9); SEGS 59 % (42-75)
--- NOTE | 2019-08-29 07:10 | EKG Report ---
Test Performed on : 08/29/2019 06:48:26 AM Test Reason : cp Blood Pressure : / mmHG Vent. Rate : 075 BPM Atrial Rate : 075 BPM P-R Int : 172 ms QRS Dur : 108 ms QT Int : 386 ms P-R-T Axes : 060 028 017 degrees QTc Int : 431 ms Normal sinus rhythm. Nonspecific ST and T wave abnormality Abnormal ECG When compared with ECG of 28-AUG-2019 13:17, No significant change was found Confirmed by Evelio PALACIOS, Braydon Fu ([id number]) on 08/30/2019 6:14:28 PM
[2019-08-29] MEDS: DULERA 100 MCG/5 MCG INHALER INH SCH ×2 (08:06→19:56)
[2019-08-29] MEDS ORDERED: ZITHROMAX PO SCH (09:00)
[2019-08-29] MEDS ORDERED: ASPIRIN EC PO SCH (09:00)
[2019-08-29] MEDS: COLCRYS PO SCH ×2 (09:22→21:50)
[2019-08-29] MEDS: COZAAR PO SCH (09:22)
[2019-08-29] MEDS: ASPIRIN EC PO SCH (09:22)
[2019-08-29] MEDS: COLACE PO SCH ×2 (09:22→21:50)
[2019-08-29] MEDS: NEURONTIN PO SCH ×2 (09:22→21:50)
[2019-08-29] MEDS: LANTUS INSULIN SUBQ SCH ×2 (09:28→21:51)
[2019-08-29] MEDS: FLONASE NAS SCH ×2 (09:29→21:50)
[2019-08-29] MEDS: MAXIPIME 2 GM/NS 2 GM/100 ML IVPB IV SCH ×3 (11:58→22:11)
[2019-08-29] MEDS ORDERED: TYLENOL PO PRN (12:16)
[2019-08-29] MEDS: LAMISIL PO SCH (12:54)
--- NOTE | 2019-08-29 14:00 | INFECTIOUS DISEASE CONSULT REP ---
DATE: 08/29/2019 CONCLUSION: The patient has 1 of 2 blood cultures positive for a gram-positive coccus. This could be a contaminant or it could be a pathogen such as pneumococcus or Staphylococcus aureus. The patient's sputum also has gram-positive cocci and this could indicate that the patient has pneumonia with the same organism that is in the blood stream. In view of the patient's many infections he may have an immunoglobulin deficiency. RECOMMENDATIONS: I agree with treating the patient with cefepime and vancomycin pending culture results. Some of the side effects of the antibiotics, including rash, diarrhea, renal toxicity, and ototoxicity have been explained to the patient who agrees with treatment. I am going to order immunoglobulin levels. DISCUSSION: The patient said approximately a day ago he started having chest pain and left upper extremity pain and numbness. He was having fever and he was diaphoretic. His laboratory studies show a CBC with a white count of 5160, hemoglobin 11.3, and platelet count 215,000. Creatinine is 0.7. GFR is greater than 60. Swab for influenza is negative. One out of 2 blood cultures is growing a gram-positive coccus. Sputum is growing a gram-positive coccus also. CT scan shows progressive nodular interstitial lung disease. PAST MEDICAL HISTORY/REVIEW OF SYSTEMS: Eyes and ears: His hearing is good. He does wear glasses. Neck: No stiffness. Cardiac: The patient did have chest pain and the exact etiology of it is not certain in my mind. Respiratory: Asthma as mentioned above. The patient did have chest pain but he was not coughing or bringing up any sputum. Gastrointestinal: No nausea, vomiting, or diarrhea. Genitourinary: No dysuria or flank pain. Bones, joints, muscles: Patient has numbness in his feet due to diabetic neuropathy. Neurologic: No seizures. The patient does not have any loss of motor function, but he does have a decrease in sensation in his feet due to diabetic neuropathy. PREVIOUS HOSPITALIZATIONS AND OPERATIONS: He has been admitted in the past for pneumonia. The patient has had a lung biopsy which showed interstitial lung disease. He has had sinus surgery also. MEDICAL DISEASES: Positive for interstitial lung disease and asthma, congestive heart failure and hypertension. Patient also is a diabetic and he has neuropathy as mentioned above. INFECTIOUS DISEASE HISTORY: Positive for pneumonia on more than 1 occasion. FAMILY HISTORY: Positive for diabetes mellitus, hypertension, myocardial infarction, and stroke. SOCIAL HISTORY: [place] He is . He does not have any pets. He does not smoke cigarettes, drink alcoholic beverages or abuse drugs. ALLERGIES: He is allergic to sulfa. SOCIAL HISTORY: He is disabled. MEDICATIONS: Taken at home include albuterol inhaler. Fluticasone nasal spray, Neurontin, insulin, losartan, Singulair Protonix, prednisone, terbinafine and Spiriva. PHYSICAL EXAMINATION: Vital Signs: Temperature is 97.8 degrees, pulse 73, respirations 15, blood pressure is 100/72. Patient is 5 feet 11 inches tall, weighs 198 pounds. General: This is an obese, young male. He is in no acute distress at this time. Head/eyes/ears/nose/throat: He can hear my spoken words and see near objects. There is no white coating on his tongue. Neck: No stiffness. Lungs: Have bilateral basilar rales. Cardiovascular: Heart rate is regular. Abdomen: Soft and nontender. Neurologic: The patient is alert. He can move his extremities. There is no tremor. Integument: No rash. Thank you for the consult. cc: Esteban Duran MD
--- NOTE | 2019-08-29 17:16 | PROGRESS NOTE ---
DATE: 08/29/2019 SUBJECTIVE: Mr. Elizabeth is feeling better. No chest pain today. Breathing comfortably. A 39-year- old. PHYSICAL EXAMINATION: Vital Signs: On exam, afebrile. Temperature 98.3 degrees, pulse 87, respirations 15, blood pressure 111/66. HEENT: Pupils are equal and round. Lungs: Clear in all lung simons. Cardiovascular: Regular rhythm and rate without murmur or S3. Abdomen: Soft. Skin: Warm and dry. ASSESSMENT AND PLAN: 1. A 39-year-old black male with a history of asthma, interstitial fibrosis, diabetes mellitus, and hypertension, recurrent pneumonia in the past and has had pericarditis diagnosed in the last few use. He came in with complaints of sharp chest pain, high sensitivity, troponin going up to 600, and EKG shows normal sinus rhythm with ST-T pattern suggestive of pericarditis. He had an echocardiogram done that revealed ejection fraction 50% to 55% with some hypokinesis at the base of the septum and the base of the lateral wall which was noted. No significant valvular abnormality. 2. Given his lung pathology and ongoing chronic lung issues, Dr. Boyer is following. 3. CT of the chest is done with contrast, and the plan was to get a resting Cardiolite GXT, and given the diagnosis of mild pericarditis and pericarditis, start him on colchicine. 4. Blood pressure, history of hypertension. 5. Diabetes, so we are following sugars. 6. Clinically he feels better. LABORATORIES AND ORDERS: 1. Looking at his lab and orders, he is on Singulair 10 mg every night at bedtime, aspirin 81 mg a day, colchicine 0.6 mg b.i.d., Colace 100 mg b.i.d., Neurontin 300 mg p.o. b.i.d. He takes insulin Lantus 30 units subcutaneous b.i.d., Cozaar 25 mg a day, cefepime 2 grams IV every 12 hours, Dulera which is mometasone and formoterol 2 puffs b.i.d., Protonix 40 mg a day, Lamisil 250 mg daily, vancomycin 2000 mg IV every 12 hours, azithromycin was given 1 dose, aspirin 325 mg given 1 dose. cc: Jaime Miller MD
[2019-08-29] MEDS: KLOR-CON PO SCH (21:50)
[2019-08-29] MEDS: SINGULAIR PO SCH (21:50)
--- NOTE | 2019-08-29 22:00 | PULMONOLOGY PROGRESS NOTE ---
DATE: 08/29/2019 SUBJECTIVE: The patient is awake and alert. He underwent a stress test earlier today. I did obtain the pathology report from [facility] which reveals bronchocentric infiltrate with acute on chronic inflammatory cells along with mucopurulent exudate. This is more consistent with chronic infection/bronchiectasis. It is noted that the pathologist reports that the uninvolved parenchymal infiltrates show no evidence of any sort of interstitial pneumonia. The patient reports he feels better today. OBJECTIVE: Vital Signs: The patient has been afebrile for the last 24 hours. Blood pressure 111/66, heart rate 87, respiratory rate 18, oxygen saturation 100% on room air. HEENT: Pupils are equal and reactive. Oropharynx appears clear. Neck: Supple. Chest: Crackles bilaterally with a predominance at the left base. Scattered rhonchi also present. Cardiac: S1, S2. Abdomen: Soft and obese. Extremities: Without edema. LABORATORIES: Total IgG is low normal at 700. IgM is slightly low at 27. White blood count 5.16, hemoglobin 11.3, platelet count 215,000. Hemoglobin A1c is 11.8. IMPRESSION: A 39-year-old with: 1. Bronchiectasis, with exacerbation. 2. Prior Pseudomonas aeruginosa identified on cultures. 3. Poorly controlled diabetes mellitus. 4. Atypical chest pain. DISCUSSION: 39-year-old with problems outlined above. The patient may have a mild immunodeficiency from his history of having chronic sinusitis and bronchitis as a child. His immunoglobulin level is low normal. He currently will be difficult to manage if he cannot control his blood sugars. Once his blood sugar goes above 180, his white blood cells fail to function appropriately, making it difficult to control his chronic infections. RECOMMENDATIONS: 1. Encourage patient to be responsible for his hemoglobin A1c and to get it into the normal range. 2. Encourage patient to begin using his nebulizer 3 times a day. 3. Encourage patient to begin a daily exercise/aerobic program. 4. Recommend a 3 to 4 week course of antibiotics,focusing on gram-negative organisms such as Pseudomonas. cc: Morris Boyer MD
[2019-08-30] MEDS: VANCOMYCIN 2,000 MG in NS 500 ML IV SCH ×2 (00:36→15:14)
[2019-08-30] MEDS: DUONEB (A & A) INH SCH ×6 (03:47→22:50)
[2019-08-30] MEDS: HUMULIN R SUBQ SCH ×4 (06:29→20:51)
[2019-08-30] MEDS: PROTONIX PO SCH (06:30)
[2019-08-30 06:42] LABS: AGAP 8; BUN 11 mg/dL (8-22); CALCIUM 8.3 mg/dL (8.8-10.2); CHLORIDE 108 mmol/L (98-107); COSMO 282; CREATININE 0.7 mg/dL (0.7-1.2); ESTIMATED GFR > 60; GLUCOSE 157 mg/dL (70-104); MAGNESIUM 1.9 mg/dL (1.5-2.7); POTASSIUM 3.7 mmol/L (3.5-5.1); SODIUM 140 mmol/L (136-145); TCO2 24 mmol/L (25-35)
[2019-08-30] MEDS ORDERED: LEXISCAN ONE (09:17)
[2019-08-30] MEDS: MORPHINE IV PRN (11:03)
[2019-08-30] MEDS: ZOFRAN IV PRN ×2 (11:03→18:06)
[2019-08-30] MEDS: LAMISIL PO SCH (12:08)
[2019-08-30] MEDS: KLOR-CON PO SCH ×2 (12:09→20:52)
[2019-08-30] MEDS: NEURONTIN PO SCH ×2 (12:09→20:59)
[2019-08-30] MEDS: ASPIRIN EC PO SCH (12:09)
[2019-08-30] MEDS: COLCRYS PO SCH (12:09)
[2019-08-30] MEDS: FLONASE NAS SCH ×2 (12:10→20:50)
[2019-08-30] MEDS: COZAAR PO SCH (12:10)
[2019-08-30] MEDS: COLACE PO SCH ×2 (12:10→20:51)
[2019-08-30] MEDS: DULERA 100 MCG/5 MCG INHALER INH SCH ×2 (12:34→19:39)
[2019-08-30] MEDS: MAXIPIME 2 GM/NS 2 GM/100 ML IVPB IV SCH ×2 (12:38→23:55)
[2019-08-30] MEDS: LANTUS INSULIN SUBQ SCH ×2 (12:38→20:59)
--- NOTE | 2019-08-30 14:14 | PROGRESS NOTE ---
DATE: 08/30/2019 SUBJECTIVE: Mr. Elizabeth has not had any further chest pain. Dr. Fitzgerald had looked and we plan on doing a left heart catheterization tomorrow. He had gone to nuclear scan today at rest. He has some left ventricular dysfunction, and reduced ejection fraction. OBJECTIVE: Vital Signs: On exam today, temperature 97.5 degrees, pulse 86, respirations 17, and blood pressure 119/67. HEENT: Pupils are equal and round. Lungs: Clear in all lung simons. Cardiovascular: Regular rhythm and rate without murmur or S3. Input and Output: Urine output was 1300 mL. ASSESSMENT AND PLAN: 1. Bronchiectasis with exacerbation. Prior Pseudomonas aeruginosa identified on cultures. 2. Poorly controlled diabetes mellitus type 2. Continue pattern sugars. 3. Atypical chest pain. Cannot confirm pericarditis or myocarditis. 4. Left ventricular dysfunction, systolic dysfunction, and want to look at the left heart catheterization. REVIEW OF ORDERS: His orders at the present time, I do not see any changes. He is on Singulair 10 mg a day, aspirin 81 mg a day, Colace 100 mg p.o. b.i.d., fluticasone spray nasal spray b.i.d., Neurontin 300 mg p.o. b.i.d., Lantus insulin 30 units subcutaneous b.i.d., Cozaar 25 mg a day, cefepime 2 g IV q.12, Lamisil 250 mg p.o. daily, and vancomycin 2 g IV q.12. REVIEW OF LABORATORY: His lab is unremarkable. C-reactive protein was 173 and high. ProBNP was only 324. cc: Jaime Miller MD
--- NOTE | 2019-08-30 15:29 | Diag Imaging Result Document ---
PROCEDURE NAME: MYOCARDIAL PERF SCAN, STR/REST - 08/29/2019 STUDY: Two day rest/stress Lexiscan myocardial perfusion study. INDICATION: Patient with questionable myocarditis versus coronary heart disease. DESCRIPTION: The patient came into the nuclear laboratory on 08/29/2019, received resting injection of technetium 99 sestamibi 33.2 mCi. Multiple tomographic views of the cardiac structures were obtained at rest. Subsequently, the patient underwent Lexiscan infusion on 08/30, 0.4 mg of Lexiscan infused. At peak infusion, injected with technetium 99 sestamibi 33.9 mCi. Multiple tomographic views of the cardiac structures were obtained following the completion of the protocol. SUMMARY OF THE ELECTROCARDIOGRAPHIC PORTION OF THE STUDY: Resting ECG shows sinus rhythm, rate 82 beats per minute. Resting blood pressure 131/73. Resting ECG shows an inferior scar. Nonspecific T wave. During the protocol, the heart rate increased to a maximum of 120 beats per minute. The blood pressure went up to 152/88. The patient reported no chest pain, shortness of breath, or palpitations. The peak infusion ECG showed sinus tachycardia with a diffuse nonspecific T wave abnormality. Following completion of the test, the heart rate and blood pressure returned back to baseline. In summary, electrocardiographic response to infusion of Lexiscan is nonspecific. SUMMARY OF THE MYOCARDIAL PERFUSION PORTION OF THE STUDY: Poststress tomographic views of the left ventricle showed relatively extensive inferior wall defect. This is of [id number] severity. The rest images showed partial reversibility of the defect. The defect is more severe in the basal inferior wall and becomes less severe towards the mid section of the inferior wall. In addition, there is a very subtle apical anterior defect and a basal anterior defect that becomes reversible on the rest images. The polar plots revealed the same. There is a mixed defect involving the [id number]-[id number]-vdh portion of the inferior wall. There is also subtle ischemia of the apical and basal anterior wall. That suggests at least 2 vessel coronary artery disease. Gated SPECT on the rest images showed ejection fraction of 62%. Poststress is 48% using the [place] tool protocol. Using the Myometrix protocol, the resting ejection fraction is 55% and poststress is 35%. That is very abnormal suggesting that indeed this patient is probably ischemic to a significant degree. The ventricular volumes are generous. There is some hypokinesis of the inferior wall. Lung/heart ratio is normal. TID is slightly elevated at 1.14. SUMMARY: This study shows: 1. Abnormal resting ECG with a nonspecific T wave response to infusion of Lexiscan. 2. Abnormal poststress myocardial perfusion scan. There is scintigraphic suggestion of inducible ischemia on top of a scar involving the [id number]-fh-axv inferior wall of the left ventricle plus subtle ischemia of the basal and apical anterior wall. 3. "Preserved" left ventricular systolic function, ejection fraction at rest is 55% to 60%, on the poststress ejection fraction drops to 40% to 48%. 4. Hypokinesis of the inferior wall noted. Clinical correlation is strongly recommended. Cardiac catheterization is probably advisable to define this patient's situation. cc: MD Narendra Beck MD
--- NOTE | 2019-08-30 17:31 | INFECTIOUS DISEASE PROGRESS NO ---
DATE: 08/30/2019 PRESENT ILLNESS: The patient has one of two blood cultures growing a coagulase-negative Staph. This is a contaminant and it does not require treatment. The patient, on CT scan, has a progressive nodular infiltrate which could be due to pneumonia. The patient had immunoglobulin levels drawn. They are all in the normal range. MEDICATIONS: Currently, the patient has been on vancomycin and cefepime now for two days. PHYSICAL EXAMINATION: Vital Signs: Temperature is 97.5 degrees, pulse 86, respirations 17, blood pressure 119/67. General: This is an ill-appearing young male. He is in no acute distress. Head/eyes/ears/nose/throat: He can hear my spoken words and see near objects. He does not have any white coating on his tongue. Neck: No pain with movement. Lungs: Clear to auscultation. Cardiovascular: Heart rate today was regular. Abdomen: Soft and nontender. Neurologic: The patient is awake. He can move his extremities. There is no tremor. LAB AND X-RAY: The patient's IgG is 700. The IgA is 212. Both these are in the normal range. One of two blood cultures is growing a coagulase-negative Staph. As I mentioned above, this is a contaminant and does not require treatment. Sputum is growing a gram-negative martin. For today, there has not been a CBC ordered. Creatinine is 0.7. GFR is greater than 60. ASSESSMENT AND PLAN: The patient has a nodular pneumonia. I plan to continue his two antibiotics, namely cefepime and vancomycin. Hopefully tomorrow there will be the identification of the sputum's gram-negative martin and if it is necessary, the antibiotics will be changed. The patient's immunoglobulin levels are in the normal range, so the patient does not require IVIG. COMORBIDITIES: He has interstitial lung disease, asthma, congestive heart failure, and hypertension. He also is a diabetic and he has neuropathy. cc: Esteban Duran MD
[2019-08-30] MEDS: SINGULAIR PO SCH (20:52)
--- NOTE | 2019-08-31 00:57 | PULMONOLOGY PROGRESS NOTE ---
DATE: 08/30/2019 SUBJECTIVE: The patient is awake, alert, and conversant. He reports he has had some decrease in cough, but continues to have significant sputum production. OBJECTIVE: Vital Signs: The patient has been afebrile for the last 24 hours. Blood pressure 112/75, heart rate 84, respiratory rate 18, oxygen saturation 97% on room air. HEENT: Pupils are equal and reactive. Oropharynx appears clear. Neck: Supple. Chest: Reveals rhonchi bilaterally. Cardiac: S1, S2. Abdomen: Obese and soft. Extremities: Without edema. LABORATORIES: Serum protein electrophoresis is reviewed. He does have a monoclonal band present in the gamma region, but no significant gamma spike noted. He does have mild IgG reduction at 680 mg/dL. Sputum is growing a gram-negative martin. Cardiology indicates evidence of inducible ischemia with a reduction in ejection fraction on post-stress imaging. IMPRESSION: A 39-year-old with 1. Bronchiectasis. 2. Poorly controlled diabetes mellitus with a hemoglobin A1c of 11.8. 3. Mild immunoglobulin deficiency. 4. 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 5. Inducible ischemia noted on cardiac catheterization. RECOMMENDATIONS: 1. Continue bronchial hygiene and treatment for presumptive Pseudomonas. 2. Encourage patient to manage his diabetes and get his hemoglobin A1c into an acceptable range. 3. Anticipate cardiac catheterization. 4. Consider Oncology evaluation for monoclonal band with a paraprotein present, MGUS is suspected. cc: Morris Boyer MD
[2019-08-31] MEDS: VANCOMYCIN 2,000 MG in NS 500 ML IV SCH (03:15)
[2019-08-31] MEDS: DUONEB (A & A) INH SCH ×6 (03:47→23:17)
[2019-08-31 06:40] LABS: AGAP 7; BUN 10 mg/dL (8-22); CALCIUM 8.1 mg/dL (8.8-10.2); CHLORIDE 110 mmol/L (98-107); COSMO 283; CREATININE 0.7 mg/dL (0.7-1.2); ESTIMATED GFR > 60; GLUCOSE 106 mg/dL (70-104); POTASSIUM 3.8 mmol/L (3.5-5.1); SODIUM 142 mmol/L (136-145); TCO2 25 mmol/L (25-35)
[2019-08-31 06:42] LABS: BASO# 0.01 X1000 (0.0-0.2); BASO% 0.2 % (0.0-0.8); EOS# 0.07 X1000 (0.0-0.7); EOS% 1.4 % (0.0-10.0); HEMATOCRIT 36.4 % (42.0-52.0); HEMOGLOBIN 11.2 g/dL (14.0-18.0); LYMPH# 1.53 X1000 (1.2-3.4); LYMPH% 30.4 % (20.5-51.1); MCHC 30.8 g/dL (33-37); MCV 74.9 FL (81-99); MONO# 0.29 X1000 (0.11-0.59); MONO% 5.8 % (1.7-9.3); MPV 10.6 FL (7.4-10.4); NEUT# 3.14 X1000 (1.4-6.5); NEUT% 62.2 % (42.2-75.2); PLT 233 X1000 (130-400); RBC 4.86 XMIL (4.7-6.1); RDW 14.8 % (11.5-14.5); WBC 5.04 X1000 (4.8-10.8)
[2019-08-31] MEDS: HUMULIN R SUBQ SCH ×4 (06:49→20:26)
[2019-08-31] MEDS: PROTONIX PO SCH ×2 (06:50→06:54)
[2019-08-31] MEDS: COLACE PO SCH ×2 (08:06→20:26)
[2019-08-31] MEDS: KLOR-CON PO SCH ×2 (08:06→20:26)
[2019-08-31] MEDS: ASPIRIN EC PO SCH (08:06)
[2019-08-31] MEDS: COZAAR PO SCH (08:06)
[2019-08-31] MEDS: NEURONTIN PO SCH ×2 (08:06→20:26)
[2019-08-31] MEDS: FLONASE NAS SCH ×2 (08:07→20:27)
[2019-08-31] MEDS: LAMISIL PO SCH (08:07)
[2019-08-31] MEDS: LANTUS INSULIN SUBQ SCH ×2 (08:09→20:54)
[2019-08-31] MEDS ORDERED: HEPARIN 1000 UNITS/NS 2,000 UNIT/1,000 ML IV.SOLN ONE (08:14)
[2019-08-31] MEDS: ZOFRAN IV PRN (08:19)
[2019-08-31] MEDS: DULERA 100 MCG/5 MCG INHALER INH SCH ×2 (08:29→19:42)
[2019-08-31] MEDS ORDERED: MORPHINE ONE (09:02)
[2019-08-31] MEDS ORDERED: NS 1,000 ML ONE (09:02)
[2019-08-31] MEDS ORDERED: CLAVE TWINSITE 32 IN 11959 ONE (09:02)
[2019-08-31] MEDS ORDERED: ANESTHESIA PB SET 88 IN 5742 ONE (09:02)
[2019-08-31] MEDS ORDERED: VERSED ONE (09:02)
[2019-08-31] MEDS ORDERED: NS 1,000 ML IV ONE (10:11)
--- NOTE | 2019-08-31 10:34 | EKG Report ---
Test Performed on : 08/31/2019 10:20:17 AM Test Reason : s/p heart cath Blood Pressure : / mmHG Vent. Rate : 083 BPM Atrial Rate : 083 BPM P-R Int : 164 ms QRS Dur : 096 ms QT Int : 380 ms P-R-T Axes : 063 039 009 degrees QTc Int : 446 ms Normal sinus rhythm. Possible Inferior infarct , age undetermined Abnormal ECG When compared with ECG of 29-AUG-2019 06:48, Borderline criteria for Inferior infarct are now present Confirmed by Evelio PALACIOS, Braydon Fu ([id number]) on 09/01/2019 12:23:06 PM
[2019-08-31] MEDS: MAXIPIME 2 GM/NS 2 GM/100 ML IVPB IV SCH ×2 (10:45→22:41)
--- NOTE | 2019-08-31 14:39 | INFECTIOUS DISEASE PROGRESS NO ---
DATE: 08/31/2019 PRESENT ILLNESS: The patient has a nodular pneumonia. His immunoglobulin levels are all normal except for 1 IgA level of 680. This is so close to being within the normal range that I do not think that it is of any clinical significance, and the patient certainly does not require immunoglobulin replacement therapy because of it. MEDICATIONS: The patient has been on vancomycin and cefepime for 3 days. PHYSICAL EXAMINATION: Vital Signs: Temperature 97.6 degrees, pulse 78, respirations 15, and blood pressure 135/84. General: This is an ill-appearing young male. He is in no acute distress. HEENT: He can hear my spoken words and see near objects. He does not have any white patches in his mouth. Neck: No stiffness. Lungs: There were bibasilar rales. Cardiovascular: Heart rate is regular. Abdomen: Soft and nontender. Neurologic: The patient is alert. He can move his extremities. There is no tremor. LABORATORY AND X-RAY: As I mentioned above, the one IgG level of 680, is so close to being normal that clinically it is not significant and does not merit IVIG therapy. The patient had an acid- fast smear sent, and it was canceled. Sputum is growing a gram-negative martin. It will probably be tomorrow before the identification and susceptibility testing is back. CBC shows a white count of 5040, hemoglobin 11.2, and platelet count 233,000. Creatinine is 0.7. GFR is greater than 60. ASSESSMENT AND PLAN: Patient has a nodular pneumonia. I am going to continue cefepime. I have discontinued vancomycin today for 2 reasons. One his sputum is growing gram-negative martin, and 2) the patient is going to have a cardiac catheterization today. Since that will require a lot of IV contrast, I want to stop the vancomycin hopefully to prevent any renal toxicity from developing. COMORBIDITIES: The patient has interstitial lung disease, asthma, congestive heart failure, and hypertension. He also has diabetes, and he has a neuropathy associated with the diabetes. cc: Esteban Duran MD
--- NOTE | 2019-08-31 18:04 | PROGRESS NOTE ---
DATE: 08/31/2019 SUBJECTIVE: Mr. Elizabeth feels better. He has had no chest pain. I do not have the results of the heart catheterization as of yet. He went to heart cath this morning. OBJECTIVE: Vital Signs: Afebrile, temperature 97.7 degrees, pulse 80, respirations 16, blood pressure 132/88. Pupils are equal and round. Lungs: Clear in all lung simons. Cardiovascular: Regular rhythm and rate without murmur or S3. Input and Output: Urine output was 400 mL yesterday. Today it is about 1800 mL. ASSESSMENT AND PLAN: 1. Bronchiectasis with exacerbation and prior Pseudomonas aeruginosa identified on cultures. 2. Poorly-controlled diabetes mellitus type 2. 3. Atypical chest pain. Cannot confirm pericarditis or myocarditis at this time. 4. Left ventricular dysfunction, systolic dysfunction, and plan for heart catheterization today. We will see what his results are. 5. I reviewed his orders and reviewed his lab. No significant change. cc: Jaime Miller MD
[2019-08-31] MEDS: SINGULAIR PO SCH (20:26)
[2019-08-31] MEDS: MORPHINE IV PRN (20:37)
[2019-09-01] MEDS: DUONEB (A & A) INH SCH ×3 (03:32→11:17)
[2019-09-01] MEDS: HUMULIN R SUBQ SCH ×2 (06:07→12:11)
[2019-09-01] MEDS: PROTONIX PO SCH (06:20)
--- NOTE | 2019-09-01 06:55 | Diag Imaging Result Doc PS360 ---
CHEST-1 VIEW - 09/01/2019 INDICATION: pneumonia COMPARISON: 08/28/2019 FINDINGS: There is some ill-defined infiltrate or atelectasis in the left lung base stable from prior. The right lung appears clear. Heart size is normal. No pneumothorax or significant pleural effusion. IMPRESSION: No change from prior. Electronically signed by Tirso Gamez 09/01/2019 6:53 AM
--- NOTE | 2019-09-01 07:16 | PULMONOLOGY PROGRESS NOTE ---
DATE: 08/31/2019 SUBJECTIVE: The patient is awake, alert, and conversant. He continues to have cough and sputum production but reports his sputum production is decreasing. OBJECTIVE: HEENT: Pupils are equal and reactive. Oropharynx appears clear. Neck: Supple. Lungs: Chest reveals rhonchi bilaterally. Cardiac: S1-S2. Abdomen: Soft. Extremities: Without edema. DIAGNOSTIC: Cardiac cath report is reviewed. No lesions identified in the left main coronary artery. LAD without significant stenosis. The OM 1 branch is small with 90% proximal stenosis and severe distal disease. The RCA is a dominant vessel with a 50% proximal eccentric stenosis with severe disease in an RV branch. Left ventricular ejection fraction appears normal with severe basal inferior hypokinesis. Sputum cultures revealed gram-negative rods. IMPRESSION: A 39-year-old with: 1. Bronchiectasis. 2. Poorly controlled diabetes mellitus. 3. Mild immunoglobulin deficiency. 4. Monoclonal band noted on immunoelectrophoresis. 5. Inducible ischemia on stress test with 2 vessel disease noted on cardiac catheterization. PLAN: 1. Continue bronchial hygiene and treat for presumptive pseudomonas. 2. Recurrent education to stress the importance of controlling his diabetes. 3. Consider Oncology evaluation perhaps as an outpatient for his monoclonal band with paraprotein. cc: Morris Boyer MD
[2019-09-01] MEDS: DULERA 100 MCG/5 MCG INHALER INH SCH (07:28)
[2019-09-01 07:33] LABS: AGAP 6; BUN 8 mg/dL (8-22); CALCIUM 8.7 mg/dL (8.8-10.2); CHLORIDE 106 mmol/L (98-107); COSMO 277; CREATININE 0.7 mg/dL (0.7-1.2); ESTIMATED GFR > 60; GLUCOSE 148 mg/dL (70-104); SODIUM 138 mmol/L (136-145); TCO2 26 mmol/L (25-35)
[2019-09-01] MEDS: LANTUS INSULIN SUBQ SCH (09:12)
[2019-09-01] MEDS: ASPIRIN EC PO SCH (09:12)
[2019-09-01] MEDS: NEURONTIN PO SCH (09:12)
[2019-09-01] MEDS: KLOR-CON PO SCH (09:12)
[2019-09-01] MEDS: COLACE PO SCH (09:12)
[2019-09-01] MEDS: COZAAR PO SCH (09:13)
[2019-09-01] MEDS: LAMISIL PO SCH (09:13)
[2019-09-01] MEDS: FLONASE NAS SCH (10:14)
[2019-09-01] MEDS ORDERED: PLAVIX PO SCH (10:30)
--- NOTE | 2019-09-01 10:51 | CARDIOLOGY PROGRESS NOTE ---
DATE: 09/01/2019 SUBJECTIVE: The patient is feeling better. Does not complain of chest pain. His cough and expectoration have improved. There are no palpitations. PHYSICAL EXAMINATION: Vital Signs: Blood pressure was 114/74. Heart: Jugular venous pressure was normal. First and second heart sounds were heard. There was no S3 gallop. Respiratory: Scattered crepitations. Abdomen: Soft, nontender. There was no guarding or rigidity. Bowel sounds were heard. Central Nervous System: Alert and oriented. He was moving all 4 extremities. Extremities: No pedal edema. IMAGING AND LABORATORY DATA: Laboratory examination today revealed a sodium of 138, potassium 4.0, BUN 8, creatinine 0.7. Hemoglobin 11.2, hematocrit 36.4, platelet count of 233,000, WBC 5.04. Chest x-ray today revealed ill-defined atelectasis, left base. PROBLEM LIST: 1. Diabetes. 2. Hypertension. 3. Chronic interstitial lung disease during this hospitalization. He has had Pseudomonas in the sputum, and CT scan of his chest revealed bronchiectasis and bilateral interstitial lung disease. 4. From a cardiac standpoint, the patient has abnormal cardiac enzymes. Initially, his electrocardiogram was more suggestive of a pericarditis picture. However, he had an abnormal stress test, and underwent a cardiac catheterization, which revealed significant small-vessel disease, which could have accounted for his abnormal cardiac enzymes. Discussed with Interventional Cardiology. Medical management recommended. He also had abnormal cardiac enzymes, non Q-wave myocardial infarction. Given this, would recommend the following from a cardiac standpoint. PLAN: 1. I will add Plavix 75 mg a day, in addition to aspirin given his non-STEMI and coronary artery disease. Will continue this for 1 year. 2. Add lipid-lowering agent given his diabetes, Lipitor 40 mg a day. 3. He is on JACQUELINE inhibitors. I have not added beta-blockers given his chronic interstitial lung disease, and he also has a history of asthma. 4. From a cardiac standpoint, he is stable to be discharged home. I will make followup appointments to see me in the office in about 4 weeks. cc: Narendra Fitzgerald MD
[2019-09-01] MEDS: MAXIPIME 2 GM/NS 2 GM/100 ML IVPB IV SCH (11:00)
[2019-09-01 11:21] VITALS: BP 138/90
[2019-09-01] MEDS ORDERED: MILK OF MAGNESIA PO ONE (12:34)
--- NOTE | 2019-09-01 14:01 | DISCHARGE SUMMARY ---
ADMISSION DATE: 08/28/2019 DISCHARGE DATE: 09/01/2019 BRIEF HISTORY: He came in with chest pain. A 39-year-old gentleman with history of reported congestive heart failure, hypertension, diabetes mellitus type 2. Interstitial lung disease, presented to the emergency room complaining of chest pain. He described some chest tightness across his chest wall. He does state that at times it had a sharp component as well, although no real true pleuritic type pain. PAST MEDICAL HISTORY: 1. Diabetes mellitus type 2. 2. Interstitial lung disease. 3. Asthma. 4. Reported congestive heart failure. 5. Hypertension. PAST SURGICAL HISTORY: Sinus surgery. HOSPITAL COURSE: Admission diagnoses chest pain with elevated troponin, interstitial lung disease and possible pericarditis with EKG changes that were nonspecific. History of hypertension. The patient received CTA of the chest and thorax with progressive nodular interstitial lung disease noted. No pericardial process. Pulmonary was consulted. They felt exacerbation of bronchiectasis and multinodular infiltrates, poorly controlled diabetes mellitus and atypical chest pain. Cardiology was asked to see, Dr. Fitzgerald and felt possible pericarditis or myocarditis. He did a myocardial perfusion scan on 08/29. Post stress there was abnormal resting EKG with nonspecific T-wave response to infusion of Lexiscan. Abnormal post stress myocardial perfusion scan suggestive of inducible ischemia on the top of a scar involving the basal to mid inferior wall of the left ventricle plus subtle ischemia of the basal and apical anterior wall and preserved left ventricular systolic function with ejection fraction 55 to 60 percent. Post-stress ejection fraction was 40 to 48 percent and hypokinesis, inferior wall. They had an Infectious Disease consult, 1 of 2 blood cultures growing coagulase-negative Staph. This looks like a contaminant. The patient had immunoglobulin levels drawn. The patient was treated with vancomycin and cefepime. He had abnormal cardiac enzymes. Initially, EKG was more suggestive of pericarditis picture. However, he had abnormal stress test, underwent heart catheterization revealed significant small-vessel disease which could have accounted for abnormal cardiac enzymes and so discussed with interventional cardiology. Medical management recommended. They added Plavix 75 mg a day in addition to aspirin given his non ST elevation myocardial infarction and added a lipid-lowering agent of Lipitor. He is on JACQUELINE inhibitors and we did not add beta fay at this time because of chronic interstitial lung disease and so felt he could go home. FOLLOW-UP INSTRUCTIONS: He will follow up with Cardiology and his translator/interpreter. DISCHARGE MEDICATIONS: Aspirin 81 mg a day, Lipitor 40 mg at bedtime, Plavix 75 mg a day, Colace 100 mg b.i.d., Neurontin 300 mg p.o. b.i.d., Lantus insulin 30 units subcutaneous b.i.d., Cozaar 25 mg a day. He has a Dulera inhaler 100 mcg-5 mcg 2 puffs b.i.d., Singulair 10 mg at bedtime, Protonix 40 mg p.o. daily, Klor-Con 40 mEq p.o. b.i.d., Lamisil 250 mg p.o. daily. cc: Jaime Miller MD
--- NOTE | 2019-09-01 19:01 | INFECTIOUS DISEASE PROGRESS NO ---
DATE: 09/01/2019 PRESENT ILLNESS: The patient has a Pseudomonas nodular pneumonia. MEDICATIONS: The patient has been on cefepime for 4 days, and I am going to discontinue cefepime and start the patient on ceftazidime. The patient also requested a laxative because he has not had a stool in a while, and I have ordered for him milk of magnesia. PHYSICAL EXAMINATION: Vital Signs: Temperature is 98 degrees, pulse 88, respirations 16, blood pressure is 138/90. General: This is a somewhat ill-appearing young male. He is in no acute distress. Head/Eyes/Ears/Nose/Throat: He can hear my spoken words and see near objects. He does not have any white coating on his tongue. Neck: No pain with movement. Lungs: Patient's lungs now are clear. Previously, they had bibasilar rales. Cardiovascular: Heart rate is regular. Abdomen: Soft and nontender. Extremities: In the right groin, the patient has the catheter site where he had his cardiac catheterization yesterday. The site is not swollen or tender. Neurologic: The patient is alert. He can move his extremities. There is no tremor. LAB AND RADIOLOGY: Chest x-ray showed a left lower lobe infiltrate. No new lab studies for today. ASSESSMENT AND PLAN: The patient has pneumonia. I am switching the patient from cefepime to ceftazidime. The patient's sputum grew out Pseudomonas. The patient has not had a stool in a few days. He requested to have a laxative and I have ordered milk of magnesia for him. COMORBIDITIES: Interstitial lung disease, asthma, congestive heart failure, hypertension, diabetes mellitus, and neuropathy associated with diabetes. cc: Esteban Duran MD [facility]
[2019-09-01] MEDS ORDERED: TAZIDIME 2 GM/NS 2 GM/100 ML IVPB IV SCH (20:00)
[2019-09-01] MEDS ORDERED: LIPITOR PO SCH (21:00)
--- NOTE | 2019-09-02 12:42 | CARDIAC CATH REPORT ---
DATE: 09/01/2019 PROCEDURE PERFORMED: Left heart catheterization with selective coronary angiography and left ventriculography. Entry site right femoral artery. CATHETERS USED: A 5-Uzbek JL4, 3DRC, and angled pigtail. TECHNIQUE: After intravenous sedation with morphine and Versed, local anesthesia with lidocaine was applied over right femoral artery. Arterial access was established with placement of a 5- Uzbek sheath in the right femoral artery using modified Seldinger technique. Selective coronary angiography was performed followed by left heart catheterization and left ventriculography. Upon completion of procedure, arterial sheath was removed from right femoral artery and hemostasis facilitated with manual pressure. The patient tolerated the procedure without apparent complications. FINAL DIAGNOSIS: Hemodynamics: Aortic pressure 120/66 with a mean of 89. Left ventricular pressure 117 over EDP of 17. COMMENTS ON HEMODYNAMICS: There is no significant gradient across aortic valve demonstrated on pullback from the left ventricle. ANGIOGRAPHY: 1. Left ventriculogram. The left ventricle was of normal size with severe hypokinesis of the basal inferior wall evident on JUNIOR projection. The estimated left ventricular ejection fraction is approximately 50%. There is no significant mitral regurgitation. 2. Left main coronary artery. Left main coronary artery is free of significant coronary stenosis. 3. Left anterior descending coronary. The left anterior descending coronary artery and its branches demonstrate mild luminal irregularities but no significant coronary stenosis. 4. Left circumflex coronary. The left circumflex coronary demonstrates diffuse atherosclerosis. The first obtuse marginal arising from mid vessel is an attenuated vessel of 1.5 mm diameter or less with a severe proximal stenosis of over 90%. The continuation of left circumflex coronary artery thereafter is also attenuated and less than 1.5 mm in diameter with a segment of severe (greater than 90%) stenosis. 5. Ramus intermedius branch. A ramus intermedius branch is present and demonstrates mild irregularities. There is a focal area of mild to moderate (30% to 40%) narrowing at mid vessel of the ramus intermedius. 6. Right coronary. The dominant right coronary artery demonstrates a moderate (50%) eccentric stenosis very proximally after the conus branch. There are diffuse irregularities throughout the remainder of the right coronary artery. The right ventricular branch demonstrates a severe (greater than 90%) stenosis as well as diffuse atherosclerosis. CONCLUSIONS: 1. Low normal left ventricular ejection fraction with severe hypokinesis of the basal inferior wall. 2. Right dominant coronary anatomy as described with severe diffuse atherosclerosis in distal left circumflex coronary artery with severe stenosis proximally and attenuated obtuse marginal and severe stenosis and continuation of attenuated left circumflex coronary artery. There is also moderate eccentric stenosis proximally in the right coronary artery. cc: Kian Tony MD
== END 2019-09-01 15:30 | disposition home or self-care (01) | DRG 280 ==
LOC: P.ED 01:40 → OBSVTOIN 12:04 → 2N 12:04 → SUATTDRO 12:04 → INTOOBSV 12:04
PROVIDERS: ATTEND Emergency Medicine